=== PATIENT | female | born 2000 | race Caucasian/White ===

== ENCOUNTER 2022-11-06 18:23 | Outpatient (REF) | payer BC, SELFPAY ==
[2022-11-06 20:10] LABS: Free T4 Free Thyroxine* 0.96 ng/dL (0.70-1.85)
[2022-11-09 04:40] LABS: Total T3 120 ng/dL (80-200)
== END 2022-11-06 18:24 | disposition home or self-care (01) ==
LOC: NPINS 18:23
PROVIDERS: Visit Provider Registered Nurse
DX: E06.3 Autoimmune thyroiditis (principal)
CPT/HCPCS: 84439; 84443; 84480

== ENCOUNTER 2023-02-20 20:25 | Emergency (ER) | payer BC, SELFPAY ==
--- NOTE | 2023-02-20 20:57 | ED_ITS ---
HPI - General Adult General Date Seen: 02/20/23 Chief complaint: Urogenital Problems, Female Stated complaint: possible UTI Time Seen by Provider: 02/20/23 20:57 Source: patient Mode of arrival: ambulatory Limitations: no limitations History of Present Illness HPI narrative: Patient is a 22-year-old female presenting for concerns of a urinary tract infection. States for the past 3 days she is having burning and irritation whenever she urinates. States she has had increased frequency also. States she has he symptoms frequently with her UTIs but they usually go away within couple days. This 1 has persisted and cause 1 episode of vomiting earlier today. She still feels mildly nauseated. Has not taken anything for the nausea. She does states she has noticed her urine was cloudy and she started taking some eyln-eaz-zhnhirv medicine for the can not remember what it was called. States it was not Azo but urine is now orange. Denies fevers, chills, lightheadedness, weakness, numbness, headache, vision changes. Related Data Home Medications Medication Instructions Recorded Confirmed norgestimate 0.25 mg-ethinyl 1 tab PO DAILY 02/20/23 02/20/23 estradiol 35 mcg tablet ([place]-Linyah) Allergies Allergy/AdvReac Type Severity Reaction Status Date / Time No Known Drug Allergies Allergy Verified 02/20/23 21:12 Review of Systems Status of ROS: Reports: 6 or more systems reviewed and unremarkable except as noted in History and below Exam Narrative: Exam Narrative: Const: Well-nourished, Well-developed, in mild distress Eyes: PERRL, no conjunctival injection, and symmetrical lids HENT: Atraumatic external nose and ears. Moist mucous membranes. Neck: Symmetric, trachea midline, No thyromegaly GI: Nontender/Nondistended, No rebound or guarding. MSK:Extremities w/o deformity, Normal Active ROM Skin: Warm, Dry. No rashes or lesions. Neuro: Normal Muscle tone, No focal neurological deficits. Psych: Awake, Alert, & Oriented x3. Appropriate mood and affect. Const: Vital Signs, click to edit/add: Vital Signs - 24 hr 02/20/23 21:09 Temperature 97.9 F Pulse Rate [Right Pulse Oximeter] 81 Respiratory Rate 18 Blood Pressure [Ri ght Upper Arm] 122/83 Pulse Oximetry 99 Oxygen Delivery Me thod Room Air Course Vital Signs Vital signs: Initial Vital Signs Temperature 97.9 F 02/20/23 21:09 Temperature Source Temporal Artery Scan 02/20/23 21:09 Pulse Rate 81 02/20/23 21:09 Respiratory Rate 18 02/20/23 21:09 Blood Pressure 122/83 02/20/23 21:09 Blood Pressure Mean 96 02/20/23 21:09 Blood Pressure Position Sitting 02/20/23 21:09 Pulse Oximetry 99 02/20/23 21:09 Oxygen Delivery Method Room Air 02/20/23 21:09 Vital Signs Temperature 97.9 F 02/20/23 21:09 Pulse Rate 81 02/20/23 21:09 Respiratory Rate 18 02/20/23 21:09 Blood Pressure 122/83 02/20/23 21:09 Pulse Oximetry 99 02/20/23 21:09 Oxygen Delivery Method Room Air 02/20/23 21:09 Temperature 97.9 F 02/20/23 21:09 Pulse Rate 81 02/20/23 21:09 Respiratory Rate 18 02/20/23 21:09 Blood Pressure 122/83 02/20/23 21:09 Pulse Oximetry 99 02/20/23 21:09 Oxygen Delivery Method Room Air 02/20/23 21:09 Medications Administered Medications: Generic Name Dose Route Start Last Admin Trade Name Vidhya PRN Reason Stop Dose Admin Ondansetron HCl 4 mg 02/20/23 20:57 02/20/23 21:06 Ondansetron Odt 4 Mg Tab PO 02/20/23 20:58 4 mg ONCE ONE Administration Medical Decision Making MDM Narrative Medical decision making narrative: Patient is a 22-year-old female presenting to emergency department for concerns of a UTI. She has had symptoms like this in the past but they usually go away after few days. These symptoms that have lasted for over 3 days. Is having symptoms that sound likely UTI. She is having some nausea and Zofran was given. She is drinking water emergency department this time and I do not believe she needs fluids. Vital signs are completely normal and I do not believe other lab work is necessary at this time. Urinalysis is pending. The dipstick showed positive nitrates. With her symptoms says this is likely a sign of UTI we will start her on antibiotics. Keflex and Zofran prescribed through [facility]. She is feeling better after the Zofran. Lab Data Labs: Lab Results 02/20/23 Range/Units 21:00 Urine Color Yellow (Yellow) Urine Appearance Clear (Clear) Urine pH 7.5 (5.0-8.5) Ur Specific Clayton 1.015 (1.000-1.030) Urine Protein Trace A (Negative) Urine Glucose (UA) Trace A (Negative) Urine Ketones Negative (Negative) Urine Blood Trace-intact A (Negative) Urine Nitrite Positive A (Negative) Urine Bilirubin Negative (Negative) Urine Urobilinogen 1.0 (0.2-1.0) Ur Leukocyte Esterase Negative (Negative) Discharge Plan Discharge Clinical Impression: Urinary tract infection Qualifiers: Urinary tract infection type: acute cystitis Hematuria presence: without hematuria Qualified Code(s): N30.00 - Acute cystitis without hematuria Patient Disposition: Home, Self-Care Condition: Stable Instructions: Urinary Tract Infection in Women (DC) Additional Instructions: Take the antibiotics as prescribed. Return to the emergency department for new or worsening symptoms. Prescriptions: No Action norgestimate-ethinyl estradiol [[place]] 0.25-35 mg-mcg tablet 1 tab PO DAILY Follow Up/Referrals: Provider,Not a Local [Primary Care Provider] - Stand Alone Forms: [employer] Info Instructions
[2023-02-20] MEDS: ONDANSETRON ODT 4 MG TAB PO (21:06)
[2023-02-20 21:09] VITALS: BP 122/83; PULSE 81; RESP 18; TEMP 36.6; O2SAT 99; BMI 25.1
[2023-02-20 21:13] LABS: Appearance Urine Clear (Clear); Bilirubin Urine Negative (Negative); Blood Urine Trace-intact (Negative); Color Urine Yellow (Yellow); Glucose Urine Trace (Negative); Ketones Urine Negative (Negative); Leukocyte Esterase Urine Negative (Negative); Nitrite Urine Positive (Negative); Protein Urine Trace (Negative); Specific Gravity Urine 1.015 (1.000-1.030); pH Urine 7.5 (5.0-8.5)
[2023-02-20 21:35] LABS: Amorphous Sediment Urine Few; Bacteria Urine Few
[2023-02-20 21:58] VITALS: BP 118/74; PULSE 84; RESP 18; TEMP 36.9; O2SAT 99
[2023-02-20 21:59] VITALS: BP 118/74; PULSE 84; RESP 18; TEMP 36.9
== END 2023-02-20 21:59 | disposition home or self-care (01) ==
LOC: ED 21:29
PROVIDERS: Emergency Provider Student in an Organized Health Care Education/Training Program
DX: N39.0 Urinary tract infection, site not specified (principal)
CPT/HCPCS: 81001; 87086; 99282; 99283; A9270

== ENCOUNTER 2023-12-24 16:36 | Outpatient (REF) | payer BC, OTHER, SELFPAY ==
--- OUTSIDE RECORDS SUMMARY | 2023-12-24 16:39 | XMS_ITS | Referral Summary ---
Author Organization [facility] enter Care Team Providers Care Ostomy Nurse Name Role Phone Roberto Aldridge Unavailable [phone], Need To Check Unavailable Unavailabl e Rose Marie Mcintosh CNM Primary Care Provider Source Comments This disclosure is being made pursuant to the Care Everywhere program,applicable federal and state laws, and may not contain all informationavailable regarding this patient.[facility] and [facility] Encounters Date Type Department Care Team Description 10/24/2023 Telephone [facility] - [address] [address] Rose Marie Mcintosh CNM 10/19/[address] [address] Rose Marie Mcintosh CNM 10/19/2023 Travel 10/19/2023 8:10 AM CDT Lab Only [facility] - Laboratory [address] [place] [id number] Rose Marie Mcintosh CNM [facility], Lab 10/17/[address] [address] Rose Marie Mcintosh CNM from Last 3 Months Allergies Active Allergy Reactions Criticality Noted Date Comments Amoxicillin Trihydrate Unknown 02/18/2016 Amoxicillin-Pot Clavulanate Rash 12/23/19 09 Ciprofloxacin OTHER Low 08/26/2021 Penicillin Rash 03/05/2019 Penicillins Unknown 02/18/2016 Potassium Clavulanate Unknown 02/18/2016 Medications Medication Sig Dispensed Refills Start Date End Date Status acetaminophen 500 mg tablet Take 2 tablets (1,000 mg total) by mouth every 6 hours as needed. 0 Active ibuprofen 200 mg tablet Take 400 mg by mouth every 6 hours as needed. 0 Active drospirenone-ethinyl estradiol (CATHERINE) 3-0.03 mg tabletIndications:Bir th control counseling Take 1 tablet by mouth daily. 84 tablet 4 07/27/2023 Active meloxicam 7.5 mg tabletIndications:Deepika n in both knees, unspecified chronicity Take 1 tablet (7.5 mg total) by mouth daily. 30 tablet 1 07/27/2023 Active levothyroxine 25 mcg tabletIndications:Has himoto's thyroiditis Take 1 tablet (25 mcg total) by mouth every morning before breakfast. 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 Euthyroid. Recommend checking thyroid function test every 6-12 months. 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, not intractable 08/05/2019 Intermittent explosive disorder in pediatric pat ient 05/01/2019 Syncope 03/13/2019 Exertional dyspnea 03/13/2019 Dysuria 12/24/2017 Encounter for other general counseling and advice on contraception 11/10/2016 Irritable bowel syndrome with constipation 05/24 Allergic rhinitis 12/06/2015 Resolved Problems Problem Noted Date Diagnosed Date Resolved Date Sprain of ulnar collateral l igament of right elbow 05/12/2015 11/10/2016 History of meningitis 01/21/20152016 Immunizations Name Administration Dates Next Due COVID-19, mRNA 12+ yo (PFIZE R) 30mcg/0.3mL 02/16/2021,06/06/2020,05/12/2020 DTaP 10/02/2007, 4,09/25/2002,06/17,04/21/2002 DTaP, unspecified 10/02/2007, 4,09/25/2002,06/17,04/21/2002 HPV, 9 valent (Gardasil 9) 09/20/2017,,05/24/2016,07/27 Hepatitis A, pediatric 2-dose 05/24/2016, 016 Hepatitis A, unspecified 05/24/2016 Hepatitis B, pediatric/adole scent (ENGERIX or RECOMBIVAX) 01/29/2009,01/13/2008,11/22/2007 Hepatitis B, unspecified 01/29/2009,01/13/2008,1 Hib, HbOC (Hibtiter) 07/22/2003,06/17/2002,04/21 Hib, PRP-T 09/25/2002 Hib, unspecified 07/22/2003, 3,06/17/2002,04/21 Influenza 01/17/2016, 1,01/29/2009,02/26,01/23/2003 Influenza, MDCK quadrivalent 11/19/2019 Influenza, MDCK quadrivalent PF 11/21/2019 Influenza, PF 03/04/2013 Influenza, live attenuated nasal 12/15/2011,11/0 04/2009 Influenza, quadrivalent PF 11/16/2022,12/10/2017 ,12/08/2016 Influenza, quadrivalent nasal 12/12/2013 Influenza, unspecified 12/08/2020,02/26/2003,06/2002 MMR 10/02/2007,11/12/2003,11/11/2002 Meningococcal B, OMV adjuvan saritha (Bexsero) 07/27/2023,07/28/2015 Meningococcal Conjugate, MCV 4P (Menactra) 09/26/2018,07/28/2015,10/09/2014 Novel Influenza H1N1 12/10/2008 Novel Influenza H1N1, PF 01/07/2009 Polio, unspecified 10/02/2007, 3,06/17/2002,04/21 Polio/IPV 10/02/2007, 3,06/17/2002,04/21 Tdap 10/09/2014 Varicella 07/28/2015,11/22/2007 Social History Tobacco Use Types Packs/Day Years Used Date Smoking Tobacco: Never Smokeless Tobacco: Never Tobacco Cessation:Counseling Given: Not Answered Alcohol Use Standard Drinks/Week Comments Yes 3 (1 standard drink = 0.6 oz pur e alcohol) PHQ-2 Answer Date Recorded Total score/PHQ-2 0 07/27/2023 PHQ-9 Answer Date Recorded Total Score (PHQ-9 includes PHQ-2 questions/scor e) 2 07/27/2023 Sex and Gender Information Value Date Recorded Sex Assigned at Not on file Gender Identity Not on file Sexual Orientation Not on file Last Filed Vital Signs Vital Sign Reading Time Taken Comments Blood Pressure 100/68 07/27/2023 9:45 AM CDT Pulse 72 07/27/2023 9:45 AM CDT Temperature 36.3 ??C (97.3 ??F) 07/27/2023 9:45 AM CD T Respiratory Rate 14 09/07/2021 8:56 PM CDT Oxygen Saturation 97% 10/17/2021 5:12 PM CDT Inhaled Oxygen Concentration - - Weight 64.5 kg (142 lb 3.2 oz) 07/27/2023 9:45 A M CDT Height 160 cm (5' 2.99) 07/27/2023 9:45 AM CDT Body Mass Index 25.2 07/27/2023 9:45 AM CDT Plan of Treatment Not on file Procedures Procedure Name Priority Date/Time Associated Diagnosis Comments [facility] DIFFERENTIAL Routine 10/19/2023 7:5 4 AM CDT Screening for iron deficiency anemia [facility] T3, TOTAL Routine 10/19/2023 7:54 AM CDT Lubna's thyroiditis [facility] FERRITIN Routine 10/19/2023 7:54 AM CDT Screening for iron deficiency anemia [facility] CBC WITH DIFFERENTIAL Routine 10/19/2023 7:54 AM CDT Screening for iron deficiency anemia [facility] T4, FREE Routine 10/19/2023 7:54 AM CDT Luban's thyroiditis [facility] THYROID-STIMULATING HORMONE (TSH) Routine 10/19/2023 7:54 AM CDT Lubna's thyroiditis from Last 3 Months Results * [facility] FERRITIN (10/19/2023 7:54 AM CDT) Pathologist [facility] Ferritin - [facility] 42 20 - 200 ng/mL 10/19/2023 9:04 AM CDT [facility] Blood Venipuncture / Unknown 10/19/2023 7:54 AM CDT 10/19/2023 7:56 AM CDT Rose Marie Esteban [facility] Performing Organization Address City/[facility]/ZIP Co de Phone Number [address] [address], [place] [phone] * [facility] T3, TOTAL (10/19/2023 7:54 AM CDT) [facility] T3 (Triiodothyron ine), Total - Serum - [place] 149 80 - 200 ng/dL 10/20/2023 8:51 AM CDT [facility] Blood Venipuncture / Unknown 10/19/2023 7:54 AM CDT 10/19/2023 7:56 AM CDT Narrative [facility] - 10/20/2023 8:51 AM CDT Test Performed by: [facility] [address] [place] [id number] Can Capper: Neisha Jackman Ph.D.; CLIA# [id number] Rose Marie Esteban Aggie [facility] [address] [place] [address], [place] [phone] * (ABNORMAL) [facility] THYROID-STIMULATING HORMONE (TSH) (10/19/2023 7:54 AM CDT) TSH (Thyroid Stimulating Hormone) - [facility] 4.23(H) 0.30 - 4.20 uIU/mL 10/19/2023 9:11 AM CDT [facility] Comment: Caution: ??Patients taking multivitamins containing biotin within 12 hours of being drawn may have falsely decreased TSH results. Blood Venipuncture / Unknown 10/19/2023 7:54 AM CDT 10/19/2023 7:56 AM CDT Rose Marie Esteban [facility] [address] [place] [address], * (ABNORMAL) [facility] DIFFERENTIAL (10/19/2023 7:54 AM CDT) Pathologist [facility] WBC Count - Adjusted - [facility] 8.78 <=30.00 x10(9)/L 10/19/2023 8:21 AM [facility] Total Cells Counted - [facility] 100 10/19/2023 8:21 AM [facility] % Neutrophils - [facility] 35.0(L) 50.0 - 75.0 % 10/19/2023 8:21 AM [facility] % Lymphocytes - [facility] 56.0(H) 18.0 - 42.0 % 10/19/2023 8:21 AM [facility] % Monocytes - [facility] 3.0 2.0 - 11.0 % 10/19/2023 8:21 AM [facility] % Eosinophils - [facility] 6.0(H) 1.0 - 3.0 % 10/19/2023 8:21 AM [facility] % Basophils - [facility] 0.0 0.0 - 2.0 % 10/19/2023 8:21 AM [facility] # Neutrophils - [facility] 3.07 1.56 - 6.45 x10(9)/L 10/19/2023 8:21 AM CDT [facility] # Lymphocytes - [facility] 4.92(H) 0.95 - 3.07 x10(9)/L 10/19/2023 8:21 AM CDT [facility] # Monocytes - [facility] 0.26 0.26 - 0.81 x10(9)/L 10/19/2023 8:21 AM CDT [facility] # Eosinophils - [facility] 0.53(H) 0.03 - 0.48 x10(9)/L 10/19/2023 8:21 AM CDT [facility] # Basophils - [facility] 0.00(L) 0.01 - 0.08 x10(9)/L 10/19/2023 8:21 AM T [facility] RBC Morphology - [facility] Normal Normal 10/19/2023 8:21 AM T [facility] Platelet Estimate - [facility] Adequate Adequate 10/19/2023 8:21 AM T [facility] Blood Venipuncture / Unknown 10/19/2023 7:54 AM CDT 10/19/2023 7:56 AM CDT Rose Marie Esteban Aggie [facility] Performing Organization Address City/[facility] [[email or web address]] Co de Phone Number [facility] [address] [place] [address], * (ABNORMAL) [facility] T4, FREE (10/19/2023 7:54 AM CDT) Pathologist [facility] T4 (Thyroxine), Free - [facility] 0.83(L) 0.90 - 1.70 ng/dL 10/19/2023 9:10 AM CDT [facility] Comment: Caution: ??Patients taking multivitamins containing biotin within 12 hours of being drawn may have falsely increased free T4 results. Blood Venipuncture / Unknown 10/19/2023 7:54 AM CDT 10/19/2023 7:56 AM CDT Rose Marie Esteban CNM [facility] [address] [place] [address], [place] [phone] * (ABNORMAL) [facility] CBC WITH DIFFERENTIAL (10/19/2023 7:54 AM CDT) WBC Count - [facility] 8.78 3.44 - 9.56 x10(9)/L 10/19/2023 8:21 AM CDT [facility] RBC Count - [facility] 4.73 3.92 - 5.13 x10(12)/L 10/19/2023 8:21 AM CDT [facility] Hemoglobin - [facility] 13.7 11.6 - 15.0 g/dL 10/19/2023 8:21 AM T [facility] Hematocrit - [facility] 40.7 35.5 - 44.9 % 10/19/2023 8:21 AM T [facility] MCV (Mean Corpuscular Volume) - [facility] 86.0 78.2 - 97.9 fl 10/19/2023 8:21 AM T [facility] Platelet Count - [facility] 323 157 - 371 x10(9)/L 10/19/2023 8:21 AM T [facility] RDW (RBC Distribution Width)-CV - [facility] 11.7(L) 12.2 - 16.1 % 10/19/2023 8:21 AM T [facility] Blood Venipuncture / Unknown 10/19/2023 7:54 AM CDT 10/19/2023 7:56 AM CDT Rose Marie Esteban CNM [facility] [address] [place] [address], [place] [phone] from Last 3 Months Care Teams Ostomy Nurse Relationship Specialty Start Date End Date [id number], Need To Check ` PCP - Primary Care Physician 02/04/07 Rose Marie Mcintosh CN [address] [place] [id number] PCP - General Nurse Practitioner 01/16/22 Roberto Aldridge [address] [place] [id number] Family Practice 03/03/19
--- OUTSIDE RECORDS SUMMARY | 2023-12-24 16:39 | XMS_ITS | Clinical Summary ---
Author Organization [facility] enter Care Team Providers Care Transitions Rn Care Coordinator Name Role Phone Roberto Aldridge Unavailable [phone], Need To Check Unavailable Unavailabl e Rose Marie Mcintosh [facility] Primary Care Provider Source Comments This disclosure is being made pursuant to the Care Everywhere program,applicable federal and state laws, and may not contain all informationavailable regarding this patient.[facility] Allergies Active Allergy Reactions Criticality Noted Date [...] elbow 05/12/2015 11/10/2016 History of meningitis 01/21/20152016 Encounters Date Type Department Care Team Description 10/24/[address] [phone] Rose Marie Mcintosh CNM 10/19/2023 8:10 AM CDT Lab Only [facility] - Laboratory [address] [place] [id number] Rose Marie Mcintosh CNM [facility], Lab 10/19/[address] [address] Rose Marie Mcintosh CNM 10/19/2023 Travel 10/17/[address] [address] Rose Marie Mcintosh CNM from Last 3 Months Immunizations Name Administration Dates Next Due COVID-19, [...] Polio/IPV 10/02/2007, 3,06/17/2002,04/21 Tdap 10/09/2014 Varicella 07/28/2015,11/22/2007 Family History Medical History Relation Comments Thyroid Disease Maternal Grandfather Thyroid Disease Maternal Grandmother Hypothyroidism Mother Thyroid Disease Mother Allergic Rhinitis Other Arrhythmia Other Congenital malformation Other Diabetes Other Fainting Other GERD Other Hearing Loss Other High Cholesterol Other Hypertension Other Hypothyroidism Other Irritable Bowel Syndrome Other Migraines Other Sinusitis Other Cancer Paternal Grandmother Breast and Brain Relation Status Comments Father Alive Maternal Grandfather Maternal Grandmother Mother Alive Other Paternal Grandmother Social History Tobacco Use Types Packs/Day Years [...] 07/27/2023 9:45 AM CDT Plan of Treatment Health Maintenance Due Date Last Done Comments HIV [place] Screening 2016 HCV Screening 12/14/2019 Chlamydia Screening 12/11/2020 12/12/2019, 8 Gonorrhea Screening 12/11/2020 12/12/2019, 8 Cervical Cancer Screening 2022 Lipid Disorder Screening 2022 [id number]-2 Vaccine ( season) 2023 02/16/2021, 06/06/2020, 05/12/2020 Influenza Vaccine: Seasonal (#1) 10/21/2023 11/16/2022, 12/08/2020, 11/21/2019, Additional history exists Annual Physical Visit 07/26/2024 07/27/2023 , 07/27/2023, 10/28/2021, Additional history exists Tetanus Diphtheria Pertussis (7 - Td or Tdap) 10/09/2024 10/09/2014, 10/02/2007, 10/02/2007, Additional history exists Hepatitis B Vaccine Completed 01/29/2009, 01/29/2009, 01/13/2008, Additional history exists Varicella Vaccine Completed 07/28/2015, 11/22/2007 HPV Vaccine Completed 09/20/2017, 09/19, 05/24/2016, Additional history exists MenACWY Meningococcal Vaccine Discontinued , 07/28/2015, 10/09/2014 MenB Meningococcal Vaccine Completed 07/27/2023, Procedures Procedure Name Priority Date/Time Associated Diagnosis Comments [facility] DIFFERENTIAL Routine 10/19/2023 7:5 4 AM CDT Screening for iron deficiency anemia [facility] T3, TOTAL Routine 10/19/2023 7:54 AM CDT [place] thyroiditis [facility] FERRITIN Routine 10/19/2023 7:54 AM CDT Screening for iron deficiency anemia [facility] CBC WITH DIFFERENTIAL Routine 10/19/2023 7:54 AM CDT Screening for iron deficiency anemia [facility] T4, FREE Routine 10/19/2023 7:54 AM CDT [place] thyroiditis [facility] THYROID-STIMULATING HORMONE (TSH) Routine 10/19/2023 7:54 AM CDT [place] thyroiditis from Last 3 Months Results * [facility] FERRITIN (10/19/2023 7:54 AM CDT) Pathologist [facility] Ferritin - [facility] 42 20 - 200 ng/mL 10/19/2023 9:04 AM CDT [facility] Blood Venipuncture / Unknown 10/19/2023 7:54 AM CDT 10/19/2023 7:56 AM CDT [facility] [address] [place] [address], [place] [phone] * [facility] T3, TOTAL (10/19/2023 7:54 AM CDT) Pathologist [facility] T3 (Triiodothyron ine), Total - Serum [facility] 149 80 - 200 ng/dL 10/20/2023 8:51 AM CDT [facility] Blood Venipuncture / Unknown 10/19/2023 7:54 AM CDT 10/19/2023 7:56 AM CDT Narrative [facility] - 10/20/2023 8:51 AM CDT Test Performed by: [facility] [address] [place] [address] Flavoring Oil Filterer: Neisha Jackman Ph.D.; CLIA# [id number] Rose Marie Esteban [facility] [address] [place] [address], [place] [phone] * (ABNORMAL) [facility] THYROID-STIMULATING HORMONE (TSH) (10/19/2023 7:54 AM CDT) [facility] TSH (Thyroid Stimulating Hormone) - [facility] 4.23(H) 0.30 - 4.20 uIU/mL 10/19/2023 9:11 AM CDT [facility] Comment: Caution: ??Patients taking multivitamins containing biotin within 12 hours of being drawn may have falsely decreased TSH results. Blood Venipuncture / Unknown 10/19/2023 7:54 AM CDT 10/19/2023 7:56 AM CDT Rose Marie Maci Esteban CNM [facility] LAB [facility] [address] [place] [address], * (ABNORMAL) [facility] DIFFERENTIAL (10/19/2023 7:54 AM CDT) WBC Count - Adjusted - [facility] 8.78 <=30.00 x10(9)/L 10/19/2023 8:21 AM [facility] Total Cells Counted - [facility] 100 10/19/2023 8:21 AM [facility] % Neutrophils - [facility] 35.0(L) 50.0 - 75.0 % 10/19/2023 8:21 AM [facility] % Lymphocytes - [facility] 56.0(H) 18.0 - 42.0 % 10/19/2023 8:21 AM [facility] % Monocytes - [facility] 3.0 2.0 - 11.0 % 10/19/2023 8:21 AM [facility] % Eosinophils - [facility] 6.0(H) 1.0 - 3.0 % 10/19/2023 8:21 AM [facility] % Basophils - [facility] 0.0 0.0 - 2.0 % 10/19/2023 8:21 AM [facility] # Neutrophils - [facility] 3.07 1.56 - 6.45 x10(9)/L 10/19/2023 8:21 AM [facility] # Lymphocytes - [facility] 4.92(H) 0.95 - 3.07 x10(9)/L 10/19/2023 8:21 AM [facility] # Monocytes - [facility] 0.26 0.26 - 0.81 x10(9)/L 10/19/2023 8:21 AM CDT [facility] # Eosinophils - [facility] 0.53(H) 0.03 - 0.48 x10(9)/L 10/19/2023 8:21 AM CDT [facility] # Basophils - [facility] 0.00(L) 0.01 - 0.08 x10(9)/L 10/19/2023 8:21 AM CDT [facility] RBC Morphology - [facility] Normal Normal 10/19/2023 8:21 AM CDT [facility] Platelet Estimate - [facility] Adequate Adequate 10/19/2023 8:21 AM CDT [facility] Blood Venipuncture / Unknown 10/19/2023 7:54 AM CDT 10/19/2023 7:56 AM CDT Rose Marie Esteban [facility] LAB Performing Organization Address [facility] [place] [address], * (ABNORMAL) [facility] T4, FREE (10/19/2023 7:54 AM CDT) Pathologist [facility] T4 (Thyroxine), Free - [facility] 0.83(L) 0.90 - 1.70 ng/dL 10/19/2023 9:10 AM CDT [facility] Comment: Caution: ??Patients taking multivitamins containing biotin within 12 hours of being drawn may have falsely increased free T4 results. Blood Venipuncture / Unknown 10/19/2023 7:54 AM CDT 10/19/2023 7:56 AM CDT Rose Marie Esteban [facility] Performing Organization Address [facility]/[place] [address], [place] [phone] * (ABNORMAL) [facility] CBC WITH DIFFERENTIAL (10/19/2023 7:54 AM CDT) Pathologist [facility] WBC Count - [facility] 8.78 3.44 - 9.56 x10(9)/L 10/19/2023 8:21 AM CDT [facility] RBC Count - [facility] 4.73 3.92 - 5.13 x10(12)/L 10/19/2023 8:21 AM T [facility] Hemoglobin - [facility] 13.7 11.6 - 15.0 g/dL 10/19/2023 8:21 AM [facility] Hematocrit - [facility] 40.7 35.5 - 44.9 % 10/19/2023 8:21 AM T [facility] MCV (Mean Corpuscular Volume) - [facility] 86.0 78.2 - 97.9 fl 10/19/2023 8:21 AM [facility] Platelet Count - C 323 157 - 371 x10(9)/L 10/19/2023 8:21 AM [facility] RDW (RBC Distribution Width)-CV - [facility] 11.7(L) 12.2 - 16.1 % 10/19/2023 8:21 AM [facility] Blood Venipuncture / Unknown 10/19/2023 7:54 AM CDT 10/19/2023 7:56 AM CDT Rose Marie Esteban CNM [facility] Performing Organization Address City/State/[facility] Co de Phone Number [facility] [address] [place] [address], from Last 3 Months Care Teams Transitions Rn Care Coordinator Relationship Specialty Start Date End Date [id number], Need To Check ` PCP - Primary Care Physician 02/04/07 Rose Marie Mcintosh CNM [address] [place] [id number] PCP - General Nurse Practitioner 01/16/22 Roberto Aldridge [address] [place] [address] Family Practice 03/03/19
--- OUTSIDE RECORDS SUMMARY | 2023-12-24 16:39 | XMS_ITS | Clinical Summary ---
Author Organization [employer] [facility] [employer] Address [place], [place] [address] Care Team Providers Care Vinyl Cutter Name Role Phone Pcp, No Primary Care Provider Unavailabl e Allergies Active Allergy Reactions Criticality Noted Date Comments Penicillins Rash,*Unknown - Childhood Rxn 12/22 Potassium Clavulanate *Unknown 02/18/2016 Medications Medication Sig Dispensed Refills Start Date End Date Status [place] 0.25-35 mg-mcg tablet Take 1 Tablet by mouth once daily. Active Active Problems No known active problems Immunizations Name Administration Dates Next Due COVID-19 vaccine (Colored Solar NTech 30mcg/0.3mL) PF, MDV 02/16/2021 DTaP 10/02/2007, 4,09/25/2002,06/17,04/21/2002 Dtap Unspecified Formulation 10/02/2007, 07/22/2003,09/25/2002,06/17,04/21/2002 HIB HbOC (HibTITER) 07/22/2003,06/17/2002,2002 HIB PRP-T (ActHIB,Hiberix) 09/25/2002 HPV 9 (Gardasil 9) 09/20/2017, 7,05/24/2016,07/27 Hepatitis A (Peds) 05/24/2016,07/28/2015 Hepatitis A (Peds),Unspecified 05/24/2016,2015 Hepatitis A, Unspecified 05/24/2016 Hepatitis B (Peds) 01/29/2009,01/13/2008, 008 Hepatitis B, Unspecified 01/29/2009,01/13/2008,1 Hib Conjugate, Unspecified 07/22/2003,,06/17/2002,04/21 Inactivated Polio Vaccine 10/02/2007,08/2002,06/17/2002,04/21 Influenza A (H1N1), Inactiva saritha (Age 6-35 Mos) 01/07/2009 Influenza A (H1N1), Inactiva saritha (Age >=3 Years) 12/10/2008 Influenza Virus, Unspecified 12/08/2020,02/26/19 04,01/23/2003 Influenza, IIV4 11/16/2022 Influenza, Injectable, Mdck, Quadrivalent, W/preservative 11/19/2019 Influenza,LAIV3 Live Intrana dax (Flumist) 12/15/2011,12/22/2009 MMR 10/02/2007,11/12/2003,11/11/2002 Meningococcal B 07/28/2015 Meningococcal Vaccine (Menactra) 09/26/2018,09/2015,10/09/2014 Polio Virus, Unspecified 10/02/2007,08/2002,06/17/2002,04/21 Tdap 10/09/2014 Varicella Vaccine 07/28/2015,11/22/2007 Family History Relation Name Status Comments Mother Alive Social History Tobacco Use Types Packs/Day Years Used Date Smoking Tobacco: Never Smokeless Tobacco: Never Tobacco Cessation:Counseling Given: Yes Alcohol Use Standard Drinks/Week Comments Not Currently 0 (1 standard drink = 0.6 oz pur e alcohol) rare drink or two PHQ-2 Answer Date Recorded PHQ-2 TOTAL SCORE 2 11/16/2022 Social Connections Answer Date Recorded Frequency of Communication with Friends and Fami ly Not on file 02/19/2021 Financial Resource Strain Answer Date R ecorded Difficulty of Paying Living Expenses Not on file 02/19/2021 Difficulty of Paying Living Expenses Not on file 02/19/2021 Sex and Gender Information Value Date Recorded Sex Assigned at Not on file Gender Identity Not on file Sexual Orientation Not on file Obstetrics History Last Filed Vital Signs Vital Sign Reading Time Taken Comments Blood Pressure 108/69 11/16/2022 3:20 PM CDT Pulse 77 11/16/2022 3:20 PM CDT Temperature 36.8 ??C (98.3 ??F) 12/23/2020 3:59 PM CD T Respiratory Rate - - Oxygen Saturation 97% 11/16/2022 3:20 PM CDT Inhaled Oxygen Concentration - - Weight 65.9 kg (145 lb 3.2 oz) 11/16/2022 3:20 P M CDT Height 157.5 cm (5' 2.01) 11/16/2022 3:20 PM CD T Body Mass Index 26.55 11/16/2022 3:20 PM CDT Plan of Treatment Health Maintenance Due Date Last Done Comments HIV for age 15-65 2016 Chlamydia for age 16-24 2017 Hepatitis C screening for age 18-79 12/14/2019 Pap test for age 21-65 2022 COVID-19 vaccine series ( season) 2023 05/23/2023, 12/12/2021, 02/16/2021, Additional history exists Influenza for age 9-49 10/21/2023 , 12/08/2020, 11/19/2019, Additional history exists BMI (ht and wt on same day) for age 18+ 11/17/2023 11/16/2022, 12/23/2020, 12/08/2020 Depression screening for age 12+ 11/17/2023 11/16/2022 Tetanus booster 10/09/2024 10/09/2014 Tdap Completed 10/09/2014 HPV series for age 9-26 Completed 09/21/19 18, 10/06/2016, 05/24/2016, Additional history exists Pneumococcal series for age 6-64 Aged Out No longer eligible based on patient's age to complete this topic Care Teams Vinyl Cutter Relationship Specialty Start Date End Date Pcp, No . PCP - General 12/08/20
--- OUTSIDE RECORDS SUMMARY | 2023-12-24 16:39 | XMS_ITS | Encounter Summary ---
Author Organization [facility] enter Address [address] [place] [phone] Phone Care Team Providers Care Instrument Tech Name Role Phone Roberto Aldridge Unavailable [phone], Need To Check Unavailable Unavailabl e Rose Marie Mcintosh [facility] Primary Care Provider Reason for Visit * Reason Comments Test Results Encounter Details Date Type Department Care Team (Late st Contact Info) Description 10/24/2023 Telephone [facility] - Family Practice [address] [place] [address] [phone] Rose Marie Mcintosh, [address] [id number] Social History Tobacco Use Types Packs/Day Years Used Date Smoking Tobacco: Never Smokeless Tobacco: Never Alcohol Use Standard Drinks/Week Comments Yes 3 (1 standard drink = 0.6 oz pur e alcohol) PHQ-2 Answer Date Recorded Total score/PHQ-2 0 07/27/2023 PHQ-9 Answer Date Recorded Total Score (PHQ-9 includes PHQ-2 questions/scor e) 2 07/27/2023 Sex and Gender Information Value Date Recorded Sex Assigned at Not on file Gender Identity Not on file Sexual Orientation Not on file documented as of this encounter Miscellaneous Notes * Telephone Encounter - Eliza Bonilla RN - 10/24/2023 11:06 AM CDT I called Roslyn and notified her of results and recommendations. She verbalized understanding. JUDITH Levine ----- Message from Rose Marie Esteban CNM sent at 10/24/2023 11:00 AM CDT ----- I have reviewed these results. Please let Roslyn know that the T3 result is normal. This does not change the plan to start a low dose of synthroid at this time. Thank you. documented in this encounter Plan of Treatment Not on file documented as of this encounter Visit Diagnoses Not on filedocumented in this encounter Additional Health Concerns Assessment Noted Time PHQ-9 Depression Total Score: 2 07/27/19 24 1:05 PM CDT A fall risk assessment has been complete d for the patient 10/18/2021 1:23 PM CDT PHQ-2 Depression Total Score: 0 07/27/19 24 1:05 PM CDT documented as of this encounter Care Teams Instrument Tech Relationship Specialty Start Date End Date [id number], Need To Check ` PCP - Primary Care Physician 02/04/07 Rose Marie Mcintosh CNM [address] [place] [id number] PCP - General Nurse Practitioner 01/16/22 Roberto Aldridge [address] [place] [address] Family Practice 03/03/19 documented as of this encounter
--- OUTSIDE RECORDS SUMMARY | 2023-12-24 16:39 | XMS_ITS | Encounter Summary ---
Author Organization [facility] Care Team Providers Care Mold Cutting Machine Operator Name Role Phone Roberto Aldridge Unavailable [phone], Need To Check Unavailable Unavailabl e Rose Marie Mcintosh [facility] Primary Care Provider Encounter Details Date Type Department Care Team (Latest Contact Info) Description 10/19/2023 Travel Social History Tobacco Use Types Packs/Day Years [...] on file documented as of this encounter Plan of Treatment Not on [...] documented as of this encounter Care Teams Mold Cutting Machine Operator Relationship Specialty Start Date End Date [phone], Need To Check ` PCP - Primary Care Physician 02/04/07 Rsoe Marie Mcintosh CNM [address] [place] [address] PCP - General Nurse Practitioner 01/16/22 Roberto Aldridge [address] [place] [address] Family Practice 03/03/19 documented as of this encounter
--- OUTSIDE RECORDS SUMMARY | 2023-12-24 16:39 | XMS_ITS | Encounter Summary ---
Author Organization [facility] enter Address [address] [place] [address] Phone Care Team Providers Care Boom Storage Name Role Phone Roberto Aldridge Unavailable [phone], Need To Check Unavailable Unavailabl e Rose Marie Mcintosh [facility] Primary Care Provider Encounter Details Date Type Department Care Team (Late st Contact Info) Description 10/19/2023 8:10 AM CDT Lab Only [facility] - Laboratory [address] [place] [address] Rose Marie Mcintosh, [facility] [place] [address] c, Lab Social History Tobacco Use Types Packs/Day Years [...] as of this encounter Plan of Treatment Scheduled Orders Name Type Priority Associated Diagnoses Orde r Schedule [facility] THYROID-STIMULATING HORMONE (TSH) [facility] Lab Routine Lubna's thyroiditis Expected: 01/16/2024, Expires: 01/18/2025 documented as of this encounter Procedures Procedure Name Priority Date/Time Associated Diagnosis Comments [facility] FERRITIN Routine 10/19/2023 7:54 AM CDT Screening for iron deficiency anemia [facility] T3, TOTAL Routine 10/19/2023 7:54 AM CDT Lubna's thyroiditis [facility] THYROID-STIMULATING HORMONE (TSH) Routine 10/19/2023 7:54 AM CDT Lubna's thyroiditis [facility] DIFFERENTIAL Routine 10/19/2023 7:5 4 AM CDT Screening for iron deficiency anemia [facility] T4, FREE Routine 10/19/2023 7:54 AM CDT Lubna's thyroiditis [facility] CBC WITH DIFFERENTIAL Routine 10/19/2023 7:54 AM CDT Screening for iron deficiency anemia documented in this encounter Results * (ABNORMAL) [facility] DIFFERENTIAL (10/19/2023 7:54 AM CDT) WBC Count - Adjusted - [facility] 8.78 <=30.00 x10(9)/L 10/19/2023 8:21 AM [facility] Total Cells Counted - [facility] 100 10/19/2023 8:21 AM [facility] % Neutrophils - [facility] 35.0(L) 50.0 - 75.0 % 10/19/2023 8:21 AM [facility] % Lymphocytes - [facility] 56.0(H) 18.0 - 42.0 % 10/19/2023 8:21 AM [facility] % Monocytes - [facility] 3.0 2.0 - 11.0 % 10/19/2023 8:21 AM [facility] % Eosinophils - [facility] 6.0(H) 1.0 - 3.0 % 10/19/2023 8:21 AM [facility] % Basophils - [facility] 0.0 0.0 - 2.0 % 10/19/2023 8:21 AM [facility] # Neutrophils - [facility] 3.07 1.56 - 6.45 x10(9)/L 10/19/2023 8:21 AM [facility] # Lymphocytes - [facility] 4.92(H) 0.95 - 3.07 x10(9)/L 10/19/2023 8:21 AM [facility] # Monocytes - [facility] 0.26 0.26 - 0.81 x10(9)/L 10/19/2023 8:21 AM [facility] # Eosinophils - [facility] 0.53(H) 0.03 - 0.48 x10(9)/L 10/19/2023 8:21 AM [facility] # Basophils - [facility] 0.00(L) 0.01 - 0.08 x10(9)/L 10/19/2023 8:21 AM [facility] RBC Morphology - [facility] Normal Normal 10/19/2023 8:21 AM [facility] Platelet Estimate - [facility] Adequate Adequate 10/19/2023 8:21 AM [facility] Blood Venipuncture / Unknown 10/19/2023 7:54 AM CDT 10/19/2023 7:56 AM CDT Rose Marie Esteban CNM [facility] LAB [facility] [address] [place] [address], * [facility] T3, TOTAL (10/19/2023 7:54 AM CDT) Pathologist [facility] T3 (Triiodothyron ine), Total - Serum - [place] 149 80 - 200 ng/dL 10/20/2023 8:51 AM CDT [facility] Blood Venipuncture / Unknown 10/19/2023 7:54 AM CDT 10/19/2023 7:56 AM CDT Narrative [facility] - 10/20/2023 8:51 AM CDT Test Performed by: [facility] [address] [place] [address] Sailing Master: Neisha Jackman Ph.D.; CLIA# [id number] Rose Marie [facility] [address] [place] [address], [place] [phone] * [facility] FERRITIN (10/19/2023 7:54 AM CDT) [facility] Ferritin - [facility] 42 20 - 200 ng/mL 10/19/2023 9:04 AM CDT [facility] Blood Venipuncture / Unknown 10/19/2023 7:54 AM CDT 10/19/2023 7:56 AM CDT Rose Marie Esteban CNM [facility] LAB [address] [address], [place] [phone] * (ABNORMAL) [facility] CBC WITH DIFFERENTIAL (10/19/2023 7:54 AM CDT) [facility] WBC Count - [facility] 8.78 3.44 - 9.56 x10(9)/L 10/19/2023 8:21 AM CDT [facility] RBC Count - [facility] 4.73 3.92 - 5.13 x10(12)/L 10/19/2023 8:21 AM CDT [facility] Hemoglobin - [facility] 13.7 11.6 - 15.0 g/dL 10/19/2023 8:21 AM CDT [facility] Hematocrit - [facility] 40.7 35.5 - 44.9 % 10/19/2023 8:21 AM CDT [facility] MCV (Mean Corpuscular Volume) - [facility] 86.0 78.2 - 97.9 fl 10/19/2023 8:21 AM CDT [facility] Platelet Count - [facility] 323 157 - 371 x10(9)/L 10/19/2023 8:21 AM CDT [facility] RDW (RBC Distribution Width)-CV - [facility] 11.7(L) 12.2 - 16.1 % 10/19/2023 8:21 AM CDT [facility] Blood Venipuncture / Unknown 10/19/2023 7:54 AM CDT 10/19/2023 7:56 AM CDT Rose Marie Esteban [facility] Performing Organization Address [facility]/[place] [address], * (ABNORMAL) [facility] T4, FREE (10/19/2023 7:54 AM CDT) T4 (Thyroxine), Free - [facility] 0.83(L) 0.90 - 1.70 ng/dL 10/19/2023 9:10 AM CDT [facility] Comment: Caution: ??Patients taking multivitamins containing biotin within 12 hours of being drawn may have falsely increased free T4 results. Blood Venipuncture / Unknown 10/19/2023 7:54 AM CDT 10/19/2023 7:56 AM CDT Rose Marie Esteban Aggie [facility] [place] [address], [place] [phone] * (ABNORMAL) [facility] THYROID-STIMULATING HORMONE (TSH) (10/19/2023 7:54 AM CDT) TSH (Thyroid Stimulating Hormone) - [facility] 4.23(H) 0.30 - 4.20 uIU/mL 10/19/2023 9:11 AM CDT [facility] Comment: Caution: ??Patients taking multivitamins containing biotin within 12 hours of being drawn may have falsely decreased TSH results. Blood Venipuncture / Unknown 10/19/2023 7:54 AM CDT 10/19/2023 7:56 AM CDT Rose Marie Esteban CNM [facility] LAB [facility] [address] [place] [address], documented in this encounter Visit Diagnoses Diagnosis Lubna's thyroiditis Chronic lymphocytic thyroiditis Screening for iron deficiency anemia documented in this encounter Additional Health Concerns Assessment Noted Time PHQ-9 Depression Total Score: 2 07/27/19 24 1:05 PM CDT A fall risk assessment has been complete d for the patient 10/18/2021 1:23 PM CDT PHQ-2 Depression Total Score: 0 07/27/19 24 1:05 PM CDT documented as of this encounter Care Teams Boom Storage Relationship Specialty Start Date End Date [phone], Need To Check ` PCP - Primary Care Physician 02/04/07 Rose Marie Mcintosh CNM [address] [place] [address] PCP - General Nurse Practitioner 01/16/22 Roberto Aldridge [address] [place] [address] Family Practice 03/03/19 documented as of this encounter
--- OUTSIDE RECORDS SUMMARY | 2023-12-24 16:39 | XMS_ITS | Encounter Summary ---
Author Organization [facility] enter Address [address] [place] [address] Phone Care Team Providers Care Plastic Parts Designer Name Role Phone Roberto Aldridge Unavailable [phone], Need To Check Unavailable Unavailabl e Rose Marie Mcintosh [facility] Primary Care Provider Reason for Visit * Reason Comments Test Results Encounter Details Date Type Department Care Team ([facility] st Contact Info) Description 10/19/2023 Telephone [facility] - Family Practice [address] [place] [address] Rose Marie Mcintosh, [address] [phone] Social History Tobacco Use Types Packs/Day Years [...] Telephone Encounter - Eliza Bonilla RN - 10/19/2023 3:02 PM CDT ----- Message from Rose Marie Esteban CNM sent at 10/19/2023 2:58 PM CDT ----- I have reviewed these results. I talked to Roslyn about this result. The last time she had her thyroid tested was about a year ago. She has been told in the past that she had a marker for Lubna's thyroiditis. In August 2020 TPO antibodies were elevated. This is the first time her TSH has actually been high and it is barely high at 4.23. Free T4 is slightly low 0.83. Therefore I would recommend starting Synthroid at a very low dose. I will call in levothyroxine or Synthroid 25 mcg to be taken every morning an hour before eating. Follow-up TSH to be ordered in 8 to 12 weeks. T3 is still pendingand we will call her with that result. We also reviewed hemoglobin and ferritin levels which are normal at this time. Iron supplement could be taken but could also cause constipation. If she decides to do a lot of vigorous exercise training for ski race again next February she should consider an iron supplement. She verbalized understanding and is in agreement with this plan of care. documented in this encounter Plan of Treatment [...] documented as of this encounter Care Teams Plastic Parts Designer Relationship Specialty Start Date End Date [id number], Need To Check ` PCP - Primary Care Physician 02/04/07 Rose Marie Mcintosh CNM [address] [place] [address] PCP - General Nurse Practitioner 01/16/22 Roberto Aldridge [address] [place] [address] Family Practice 03/03/19 documented as of this encounter
--- OUTSIDE RECORDS SUMMARY | 2023-12-24 16:40 | XMS_ITS | Encounter Summary ---
Author Organization [facility] enter Address [address] [place] [address] Phone Care Team Providers Care Warehouse Delivery Manager Name Role Phone Roberto Aldridge Unavailable [phone], Need To Check Unavailable UnavailKiersten Sawyer Primary Care Provider [phone] Rose Marie Mcintosh [facility] Primary Care Provider Reason for Visit * Reason Comments Medication Refill Encounter Details Date Type Department Care Team (Late st Contact Info) Description 05/18/2020 Refill [facility] - Urology [address] [place] [phone] Keiko Tobar PASubhaC [address] [place] [address] Social History Tobacco Use Types Packs/Day Years Used Date Smoking Tobacco: Never Smokeless Tobacco: Never Alcohol Use Standard Drinks/Week Comments Never 0 (1 standard drink = 0.6 oz pur e alcohol) Sex and Gender Information Value Date Recorded Sex Assigned at Not on file Gender Identity Not on file Sexual Orientation Not on file documented as of this encounter Plan of Treatment Not on file documented as of this encounter Visit Diagnoses Diagnosis Recurrent UTI Urinary tract infection, site not specified documented in this encounter Additional Health Concerns Assessment Noted Time PHQ-9 Depression Total Score: 020 2:09 PM CDT PHQ-2 Depression Total Score: 3 04/30/19 20 2:09 PM CDT documented as of this encounter Care Teams Warehouse Delivery Manager Relationship Specialty Start Date End Date [id number], Need To Check ` PCP - Primary Care Physician 02/04/07 Kiersten Gomez [address] [place] [address] PCP - General 04/30/19 01/15/22 Rose Marie Mcintosh CNM [address] [place] [address] PCP - General Nurse Practitioner 01/16/22 Roberto Aldridge [address] [place] [address] Family Practice 03/03/19 documented as of this encounter
--- OUTSIDE RECORDS SUMMARY | 2023-12-24 16:40 | XMS_ITS | Encounter Summary ---
Author Organization [facility] enter Address [address] [place] [address] Phone Care Team Providers Care Supervisor Cell Operation Name Role Phone Roberto Aldridge Unavailable [phone], Need To Check Unavailable UnavailKiersten Sawyer Primary Care Provider [phone] Rose Marie Mcintosh [facility] Primary Care Provider Encounter Details Date Type Department Care Team (Late st Contact Info) Description 10/18/2021 Telephone [facility] - Pod[facility]ry [facility] [address] [place], [place] [phone] Kevan Bush, DPAggie [address] [place] [address] Social History Tobacco Use Types Packs/Day Years [...] Miscellaneous Notes * Telephone Encounter - Eliza Ho RN - 10/18/2021 8:41 AM CDT Spoke with patient who states she would prefer to see dr bush today if possible, but will see whomever can get her in today. Appt scheduled for ER fu this afternoon * Telephone Encounter - Lucila Boudreaux - 10/18/2021 7:21 AM CDT Patient was in ER last night with toe injury. X-rays taken; toe was not able to be set. She was told to see Dr. Bush today. Please advise on scheduling. documented in this encounter Plan of Treatment Not on file documented as of this encounter Visit Diagnoses Not on filedocumented in this encounter Additional Health Concerns Assessment Noted Time PHQ-9 Depression Total Score: 11 020 2:09 PM CDT A fall risk assessment has been complete d for the patient 10/18/2021 1:23 PM CDT PHQ-2 Depression Total Score: 3 04/30/19 20 2:09 PM CDT documented as of this encounter Care Teams Supervisor Cell Operation Relationship Specialty Start Date End Date [id number], Need To Check ` PCP - Primary Care Physician 02/04/07 Kiersten Gomez [address] [place] [address] PCP - General 04/30/19 01/15/22 Rose Marie Mcintosh CNM [address] [place] [address] PCP - General Nurse Practitioner 01/16/22 Roberto Aldridge [address] [place] [address] Family Practice 03/03/19 documented as of this encounter
--- OUTSIDE RECORDS SUMMARY | 2023-12-24 16:40 | XMS_ITS | Encounter Summary ---
Author Organization [facility] enter Address [address] [place] [address] Phone Care Team Providers Care Silk Screen Painter Name Role Phone Roberto Aldridge Primary Care Provider [phone], Need To Check Primary Care Provider Unav ailable Roberto Aldridge Primary Care Provider Roberto Aldridge Unavailable [phone], Need To Check Unavailable UnavailKiersten Sawyer Primary Care Provider [phone] Rose Marie Mcintosh [facility] Primary Care Provider Reason for Visit * Reason Comments Medication Refill Encounter Details Date Type Department Care Team (Late st Contact Info) Description 10/04/2018 Refill [facility] Family Practice [address] [place], [place] [phone] Adri Tejada PA-C [address] [place], [place] [id number] Social History Tobacco Use Types Packs/Day Years Used Date Smoking Tobacco: Never Smokeless Tobacco: Never Alcohol Use Standard Drinks/Week Comments No 0 (1 standard drink = 0.6 oz pur e alcohol) Sex and Gender Information Value Date Recorded Sex Assigned at Not on file Gender Identity Not on file Sexual Orientation Not on file documented as of this encounter Miscellaneous Notes * Telephone Encounter - Yin Izquierdo RN - 10/07/2018 9:35 AM CDT Spoke with patient's mother Rose Marie and she was informed that pt would need a px prior to further refills. Rose Marie stated that pt had a px at [facility] recently and will have note faxed for adri tejada's review. * Telephone Encounter - Adri Tejada PA-C - 10/05/2018 9:47 AM CDT She is given 3months. I last saw her Sep 2017. Is due for px/med refill appt. Please advise and help arrange. Thx. * Telephone Encounter - Yin Izquierdo RN - 10/04/2018 3:10 PM CDT Situation: Rx refill request from [facility] pharmacy for Felecia Background: Patient last seen for this on 09/20/17 Assessment: Rx was last filled on 08/02/18. Has no upcoming appointments Recommendation: See pending RX documented in this encounter Plan of Treatment Not on file documented as of this encounter Visit Diagnoses Diagnosis Encounter for surveillance of contraceptive pills Surveillance of previously prescribed contraceptive pill documented in this encounter Additional Health Concerns Infection Onset Date Last Indicated Resolved Time Rule Out COVID-19 12/25/2019 12/25/2019 12/28/2019 3:49 PM ASSOCIATE PROGRAMMER documented as of this encounter Care Teams Silk Screen Painter Relationship Specialty Start Date End Date Roberto Aldridge [address] [place] [address] PCP - General Family Practice 11/10/16 03/02/19 [phone], Need To Check ` PCP - General 03/03/19 03/04/19 Roberto Aldridge [address] [place] [address] PCP - General Family Practice 03/05/19 04/29/19 [id number], Need To Check ` PCP - Primary Care Physician 02/04/07 Kiersten Gomez [address] [place] [address] PCP - General 04/30/19 01/15/22 Rose Marie Mcintosh CNM [address] [place] [address] PCP - General Nurse Practitioner 01/16/22 Roberto Aldridge [address] [place] [address] Family Practice 03/03/19 documented as of this encounter
--- OUTSIDE RECORDS SUMMARY | 2023-12-24 16:40 | XMS_ITS ---
Author Organization Unknown Address [address] [place] [phone] Phone Care Team Providers Care Static Balancer Name Role Phone SIMEON OLIVEIRA Attending Unavailable DANA HUGHES Primary Unavailable Immunization Immunization Date Status Additional Notes Code Code System MMR 10/02/2007 Completed 03 CVX MMR 11/11/2002 Completed 03 CVX MMR 11/12/2003 Completed 03 CVX Hep B, adolescent or pediatric 01/29/2009 Completed 08 CVX IPV 09/25/2002 Completed 10 CVX IPV 04/21/2002 Completed 10 CVX IPV 10/02/2007 Completed 10 CVX IPV 06/17/2002 Completed 10 CVX Hib, unspecified formulation 07/22/2003 Completed 17 CVX Hib, unspecified formulation 04/21/2002 Completed 17 CVX Hib, unspecified formulation 06/17/2002 Completed 17 CVX Hib, unspecified formulation 09/25/2002 Completed 17 CVX varicella 07/28/2015 Completed 21 CVX varicella 11/22/2007 Completed 21 CVX Hep B, unspecified formulation 11/22/2007 Completed 45 CVX Hep B, unspecified formulation 01/13/2008 Completed 45 CVX Hep A, ped/adol, 2 dose 05/24/2016 Completed 83 CVX Hep A, ped/adol, 2 dose 07/28/2015 Completed 83 CVX influenza, unspecified formulation 12/08/2020 Completed 88 CVX DTaP, unspecified formulation 04/21/2002 Completed 107 CVX DTaP, unspecified formulation 06/17/2002 Completed 107 CVX DTaP, unspecified formulation 07/22/2003 Completed 107 CVX DTaP, unspecified formulation 09/25/2002 Completed 107 CVX DTaP, unspecified formulation 10/02/2007 Completed 107 CVX Influenza, live, trivalent, intranasal 12/15/2011 Completed 111 CVX Influenza, live, trivalent, intranasal 12/22/2009 Completed 111 CVX meningococcal MCV4P 10/09/2014 Completed 114 CVX meningococcal MCV4P 09/26/2018 Completed 114 CVX meningococcal MCV4P 07/28/2015 Completed 114 CVX Tdap 10/09/2014 Completed 115 CVX Novel [id number], preservative-free 01/07/2009 Completed 126 CVX Novel [id number] 12/10/2008 Completed 127 CVX Influenza, split virus, trivalent, PF 03/04/2013 Completed 140 CVX Influenza, split virus, trivalent, preservative 01/17/2016 Completed 141 CVX Influenza, split virus, trivalent, preservative 01/29/2009 Completed 141 CVX Influenza, split virus, trivalent, preservative 01/11/2011 Completed 141 CVX Influenza, live, quadrivalen t, intranasal 12/12/2013 Completed 149 CVX Influenza, split virus, quadrivalent, PF 12/10/2017 Completed 150 CVX Influenza, split virus, quadrivalent, PF 12/08/2016 Completed 150 CVX meningococcal B, OMV 07/28/2015 Completed 163 CVX HPV9 10/06/2016 Completed 165 CVX HPV9 09/20/2017 Completed 165 CVX HPV9 07/28/2015 Completed 165 CVX HPV9 05/24/2016 Completed 165 CVX Influenza, MDCK, quadrivalen t, PF 11/21/2019 Completed 171 CVX COVID-19, mRNA, LNP-S, PF, 3 0 mcg/0.3 mL dose 02/16/2021 Completed 208 CVX Results URINE - Collect Da te/Time: 02/05/2023 15:40 [facility] ID: [id number] [address] [place] [address], [id number] LOINC: 2112-1 Test Value Unit Reference Range Code Code System Flag PREG URINE NEGATIVE 61430-6 LOINC Social History Type Status Start Date End Date Code Code Syst em Smoking History Never smoker (Never Smoked) 581604416 SNOMED CT Sex Female Medications Medication Start Date End Date Route Frequency Dose Code Code System Medication Instructions Home Meds Propranolol HCl 20MG Oral Tablet 03/13/2019 02/05/2023 ORAL NEEDED DAILY 772123 RxNorm TAKE 1-2 TABLET ORAL NEEDED DAILY ALPRAZolam 0.25MG Oral Tablet 05/03/2019 02/05/2023 ORAL NEEDED TWICE A DAY 1 TABLET 253939 RxNorm TAKE 1 TABLET ORAL NEEDED TWICE A DAY Felecia 3MG-0.03MG Oral Tablet 02/05/2023 Unknown ORAL EVERY DAY 1 TABLET 418063 RxNorm TAKE 1 TABLET ORAL EVERY DAY Hospital Discharge Instructions Should you have any questions prior to discharge, please contact a member of your healthcare team. If you have left the hospital and have any questions, please contact your primary care physician. Reason For Referral No Data Found Allergies and Adverse Reactions Allergy Substance Reaction Severity Start Date Concern Status Co de Code System CIPRO Active 20340722 RxNorm PENICILLIN Active Plan of Treatment No Data Found Encounters Encounter Diagnosis Start Date Code Code Sys tem Acne, unspecified 02/05/2023 SNOMED-CT Personal Care Team Section Performer Name Performer Role Active Date Inactive Da flores
--- OUTSIDE RECORDS SUMMARY | 2023-12-24 16:40 | XMS_ITS | Encounter Summary ---
Author Organization [facility] enter Address [address] [place] [phone] Phone Care Team Providers Care Call Center Director Name Role Phone Roberto Aldridge Unavailable [phone], Need To Check Unavailable Unavailabl Kiersten Burton Primary Care Provider [phone] Rose Marie Mcintosh [facility] Primary Care Provider Encounter Details Date Type Department Care Team (Late st Contact Info) Description 01/11/2021 Telephone [facility] [address] [place] [phone] Drew Butcher, PA-C [address] [place] [phone] Social History Tobacco Use Types Packs/Day Years [...] encounter Miscellaneous Notes * Telephone Encounter - Michelle Godinez RN - 01/11/2021 1:20 PM CST Err ER documented in this encounter Plan of Treatment Not on file documented as of this encounter Visit Diagnoses Not on filedocumented in this encounter Additional Health Concerns Assessment Noted Time PHQ-9 Depression Total Score: 11 020 2:09 PM CDT PHQ-2 Depression Total Score: 3 04/30/19 20 2:09 PM CDT documented as of this encounter Care Teams Call Center Director Relationship Specialty Start Date End Date [id number], Need To Check ` PCP - Primary Care Physician 02/04/07 Kiersten Gomez [address] [place] [address] PCP - General 04/30/19 01/15/22 Rose Marie Mcintosh CNM [address] [place] [address] PCP - General Nurse Practitioner 01/16/22 Roberto Aldridge [address] [place] [address] Family Practice 03/03/19 documented as of this encounter
--- OUTSIDE RECORDS SUMMARY | 2023-12-24 16:40 | XMS_ITS | Clinical Summary ---
Author Organization [facility] Address [facility] [place] [address] Care Team Providers Care Commercial Underwriter Name Role Phone PcpBronson MD Primary Care Provider [phone] Source Comments If you need additional information that is not available on Care Everywhere, please contact our Medical Records Department during business hours (Sunday - Sunday, 8 am - 5 pm) at . During nonbusiness hours, please contact our Trauma and Emergency Center at .[facility] Allergies Active Allergy Reactions Criticality Noted Date Comments Amoxicillin-Pot Clavulanate Rash 07/21/19 15 Ciprofloxacin Other Low 08/26/2021 Potassium Clavulanate Unknown 02/18/2016 Medications * Medications may not be up to date as of this document. Always verify current medications with the patient. 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 Euthyroid. Recommend checking thyroid function test every 6-12 months. 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, not intractable 08/05/2019 Intermittent explosive disorder in pediatric pat ient 05/01/2019 Exertional dyspnea 03/13/2019 Irritable bowel syndrome with constipation 05/24 Allergic rhinitis 12/06/2015 Hypogeusia 11/05/2015 Hypertrophy of nasal turbinates 11/05/2015 Impaired sense of smell 01/21/2015 History of meningitis 01/21/2015 Antritis chronic 01/21/2015 Resolved Problems Problem Noted Date Diagnosed Date Resolved Date Sprain of ulnar collateral l igament of right elbow 05/12/2015 08/05/2019 Immunizations Name Administration Dates Next Due DTaP 10/02/2007, 4,09/25/2002,06/17,04/21/2002 HIB, Unspecified 07/22/2003, 3,06/17/2002,04/21 HPV9 09/20/2017, 7,05/24/2016,07/27 Hepatitis A Pediatric, Unspecified 05/24/2016, Hepatitis A, pediatric/adolescent 07/28/2015 Hepatitis B, Adolescent or Pediatric 01/29/2009, 01/13/2008,11/22/2007 Hepatitis B, unspecified 01/29/2009,01/13/2008,1 Influenza A H1N1 12/10/2008 Influenza A H1N1 (PF) 01/07/2009 Influenza MDCK PF Quadrivalent 11/21/2019 Influenza MDCK Quadrivalent 11/19/2019 Influenza Nasal Quadrivalent 12/12/2013 Influenza Nasal Trivalent Live 12/15/2011,2009 Influenza Quadrivalent PF (d ose 0.5 mL) 12/10/2017,12/08/2016 Influenza Trivalent 01/17/2016, 1,01/29/2009,02/26,01/23/2003 Influenza Trivalent PF 03/04/2013 Influenza, Unspecified 12/08/2020 MMR Live 10/02/2007,11/12/2003,11/11/2002 Meningococcal B, OMV 07/28/2015 Meningococcal MCV4P 09/26/2018,07/28/2015,2014 Pfizer SARS-CoV-2 (Purple Cap) 02/16/2021,2020,05/12/2020 Poliovirus, unspecified 10/02/2007,09/25,06/17/2002,04/21 Tdap 10/09/2014 Varicella Live 07/28/2015,11/22/2007 Medical History Medical History Date Comments Concussion fall 2013 Concussion 07/18/2014 Exercise-induced asthma Environmental allergies Neurocardiogenic syncope 08/05/2019 Sprain of ulnar collateral ligament of right elb ow 05/12/2015 Menstrual migraine without status migrainosus, n ot intractable 08/05/2019 Irritable bowel syndrome with constipation 017 History of COVID-19 Positive 01/11/2021 01/13/20 21 Family History Relation Name Status Comments Father Kamari Alive Mother Rose Marie Alive Sister Alive Social History Tobacco Use Types Packs/Day Years Used Date Smoking Tobacco: Never Smokeless Tobacco: Never Tobacco Cessation:Counseling Given: Yes Alcohol Use Standard Drinks/Week Comments No 0 (1 standard drink = 0.6 oz pur e alcohol) Social Connection and Isolat ion Panel [NHANES] Answer Date Recorded In a typical week, how many times do you talk on the phone with family, friends, or neighbors? More than three times a week 10/24/2021 Frequency of Social Gatherin gs with Friends and Family Not on file 10/24/2021 Attends Latter-Day Services Not on file 10/24 Active Member of Clubs or Organizations Not on f ile 10/24/2021 Attends Club or Organization Meetings Not on lopez e 10/24/2021 Marital Status Not on file 10/24/2021 AUDIT-C Answer Date Recorded Q1: How often do you have a drink containing alc ohol? 2-4 times a month 10/24/2021 Q2: How many drinks containi ng alcohol do you have on a typical day when you are drinking? 1 or 2 10/24/2021 Q3: How often do you have si x or more drinks on one occasion? Less than monthly 10/24/2021 Overall Financial Resource Strain (CARDIA) Answe r Date Recorded How hard is it for you to pa y for the very basics like food, housing, medical care, and heating? Not very hard 10/24/2021 [facility] - Occupational Stress Questionnaire Answer Date Recorded Do you feel stress - tense, restless, nervous, or anxious, or unable to sleep at night because your mind is troubled all the time - these days? Rather much 10/24/2021 Exercise Vital Sign Answer Date Recorde d On average, how many days pe r week do you engage in moderate to strenuous exercise (like a brisk walk)? 6 days 10/24/2021 On average, how many minutes do you engage in exercise at this level? 60 min 10/24/2021 Hunger Vital Sign Answer Date Recorded Within the past 12 months, y ou worried that your food would run out before you got the money to buy more. Never true 10/25/19 22 Within the past 12 months, t he food you bought just didn't last and you didn't have money to get more. Never true 10/24/2021 PRAPARE - Transportation Answer Date Re corded In the past 12 months, has l ack of transportation kept you from medical appointments or from getting medications? No 06/2021 In the past 12 months, has l ack of transportation kept you from meetings, work, or from getting things needed for daily living? No 10/24/2021 Housing Stability Vital Sign Answer Kevin e Recorded In the last 12 months, was t here a time when you were not able to pay the mortgage or rent on time? No 10/24/2021 In the last 12 months, how many places have you lived? 2 10/24/2021 In the last 12 months, was t here a time when you did not have a steady place to sleep or slept in a alf (including now)? No 10/24/2021 Depression (GHS) Answer Date Recorded PHQ2 Not on file 10/09/2014 PHQ4 Not on file 10/09/2014 PHQ9 Score 0 10/09/2014 Suicide Risk Alert Not on file 10/09/2014 Sex and Gender Information Value Date Recorded Sex Assigned at Not on file Gender Identity Not on file Sexual Orientation Not on file Obstetrics History Last Filed Vital Signs Vital Sign Reading Time Taken Comments Blood Pressure 102/62 10/28/2021 12:50 PM CDT Pulse 80 10/28/2021 12:50 PM CDT Temperature 35.6 ??C (96 ??F) 02/04/2020 9:36 AM LEVELMAN Respiratory Rate - - Oxygen Saturation - - Inhaled Oxygen Concentration - - Weight 67.9 kg (149 lb 11.2 oz) 022 12:50 PM CDT Height 158 cm (5' 2.21) 10/28/2021 12: 50 PM CDT Body Mass Index 27.2 10/28/2021 12:50 PM CDT Plan of Treatment Health Maintenance Due Date Last Done Comments DIABETES SCREENING 2001 CERVICAL CANCER SCREENING 12/14/2019 LIPID SCREEN 12/14/2019 CHLAMYDIA SCREEN 10/07/2022 10/07/2021, 12/12/2019 TSH 10/07/2022 10/07/2021, 0306/2021, 01/19/2021, Additional history exists DEPRESSION/ANXIETY PHQ4 10/28/2022 10/29/19 22, 10/28/2021, 08/06/2020, Additional history exists WELLNESS VISIT 10/28/2022 10/28/2021, 07/20, 08/05/2019, Additional history exists COVID-19 Vaccine ( season) 2023 02/16/2021, 06/06/2020, 05/12/2020 Influenza Vaccine (#1) 2023 , 11/21/2019, 11/19/2019, Additional history exists DTaP/Tdap/Td Vaccine (7 - Td or Tdap) 10/09/2024 10/09/2014, 10/02/2007, 07/22/2003, Additional history exists RSV Vaccine (1 - 1-dose 75+ series) 2076 POLIO (IPV) Vaccine Completed 10/02/2007, 09/25/2002, 06/17/2002, Additional history exists Hepatitis B Vaccine Completed 01/29/2009, 01/29/2009, 01/13/2008, Additional history exists PERTUSSIS Completed 10/09/2014 HPV Vaccine Completed 09/20/2017, 09/19, 05/24/2016, Additional history exists PNEUMOCOCCAL AGES 0-64 YEARS Aged Out No longer eligible based on patient's age to complete this topic Procedures Procedure Name Priority Date/Time Associated Diagnosis Comments INFECTIOUS AGENT ANTIGEN DETECTION; TRICHOMONAS RNA Routine 10/07/2021 11:10 AM CDT Screen for STD (sexually transmitted disease) LAB TSH Routine 10/07/2021 11:02 AM CDT Lubna's thyroiditis from Last 3 Months or Most Recently Relevant to Health Maintenance Results * KOMAL CHLAMYDIA/N. GONORRHOEAE/TRICHOMONAS RNA (10/07/2021 11:10 AM CDT) CHLAMYDIA RNA Negative Negative 10/10/2021 12:24 PM CDT [facility] Comment:This is an appended report. These results have been appended to a previously preliminary verified report. NEIS. GONORRHOEAE RNA Negative Negative 10/10/2021 12:24 PM CDT [facility] Comment:This is an appended report. These results have been appended to a previously preliminary verified report. TRICHOMONAS RNA Negative Negative 12:24 PM CDT [facility] Swab VAGINAL STRUCTURE / Unknown 10/07/2021 11:10 AM CDT 10/07/2021 11:13 AM CDT Narrative [facility] - 10/10/2021 12:24 PM CDT C.trachomatis, Neis. gonorrhoeae & Trichomonas vaginalis testing by [facility]. Kiersten Gomez DO MICROBIOLOGY - GENE RAL ORDERABLES [facility] [address] [place] [address] * LAB TSH (10/07/2021 11:02 AM CDT) TSH 4.81 0.40 - 5.50 uU/mL 10/07/2021 8:38 PM CDT [facility] Blood BLOOD SPECIMEN / Unknown Venipuncture / Unknown 10/07/2021 11:02 AM CDT 10/07/2021 11:02 AM CDT Narrative [facility] - 10/07/2021 8:38 PM CDT Reference Range During : First Trimester: ?? 0.10 to 2.50 uU/mL Second Trimester: ??0.20 to 3.00 uU/mL Third Trimester: ?? 0.30 to 3.00 uU/mL Kiersten Gomez DO CHEMISTRY ORDERABLE S Performing Organization Address City/State/[facility] Co de Phone Number [facility] [address] [place] [address] from Last 3 Months or Most Recently Relevant to Health Maintenance Care Teams Commercial Underwriter Relationship Specialty Start Date End Date Bronson Henson MD [address] [facility] [address] [place] [address] PCP - General 12/23/21
--- OUTSIDE RECORDS SUMMARY | 2023-12-24 16:40 | XMS_ITS | Encounter Summary ---
Author Organization [facility] enter Address [address] [place] [address] Phone Care Team Providers Care Fire Medic Name Role Phone Roberto Aldridge Primary Care Provider [phone], Need To Check Primary Care Provider Unav ailable Roberto Aldridge Primary Care Provider [phone] Roberto Aldridge Unavailable [id number], Need To Check Unavailable UnavailKiersten Sawyer Primary Care Provider [phone] Rose Marie Mcintosh [facility] Primary Care Provider Encounter Details Date Type Department Care Team (Late st Contact Info) Description 10/10/2017 Telephone [facility] [address] [place] [address] Wm, Echo Social History Tobacco Use Types Packs/Day Years Used Date Smoking Tobacco: Never Smokeless Tobacco: Never Sex and Gender Information Value Date Recorded Sex Assigned at Not on file Gender Identity Not on file Sexual Orientation Not on file documented as of this encounter Miscellaneous Notes * Telephone Encounter - Emma Walton - 10/16/2017 1:28 PM CDT I called Roslyn's mom back and then transferred to Latosha, RN to give results. Emma Walton * Telephone Encounter - Megan Rasheed - 10/16/2017 12:11 PM CDT Patient's mother called in to see if results from the echo were back yet. Please call her to discuss this. * Telephone Encounter - Emma Walton - 10/10/2017 1:24 PM CDT I returned a call to Roslyn's mom, Rose Marie. We discussed the availability. We will leave it as scheduled. Emma Walton * Telephone Encounter - Megan Rasheed - 10/10/2017 12:23 PM CDT Patient's mother called in regarding echo on 10.15. Would like to somehow get the appointment later in the day. I stated we had no openings. She would like to talk to Emma regarding this matter. Thank you. documented in this encounter Plan of Treatment Not on file documented as of this encounter Visit Diagnoses Not on filedocumented in this encounter Additional Health Concerns Infection Onset Date Last Indicated Resolved Time Rule Out COVID-19 12/25/2019 12/25/2019 12/28/2019 3:49 PM ORIENTATION AND MOBILITY SPECIALIST documented as of this encounter Care Teams Fire Medic Relationship Specialty Start Date End Date Roberto Aldridge [address] [place] [address] PCP - General Family Practice 11/10/16 03/02/19 [id number], Need To Check ` PCP - General 03/03/19 03/04/19 Roberto Aldridge [address] [place] [address] PCP - General Family Practice 03/05/19 04/29/19 [id number], Need To Check ` PCP - Primary Care Physician 02/04/07 Kiersten Gomez [address] [place] [address] PCP - General 04/30/19 01/15/22 Rose Marie Mcintosh CN [address] [place] [address] PCP - General Nurse Practitioner 01/16/22 Roberto Aldridge [address] [place] [phone] Family Practice 03/03/19 documented as of this encounter
--- OUTSIDE RECORDS SUMMARY | 2023-12-24 16:40 | XMS_ITS | Encounter Summary ---
Author Organization [facility] enter Address [address] [place] [address] Phone Care Team Providers Care Glaze Carrier Name Role Phone Roberto Aldridge Primary Care Provider [phone], Need To Check Primary Care Provider Unav ailable Roberto Aldridge Primary Care Provider [phone] Roberto Aldridge Unavailable [phone], Need To Check Unavailable UnavailKiersten Sawyer Primary Care Provider [phone] Rose Marie Mcintosh [facility] Primary Care Provider Reason for Visit * Reason Comments Medication Refill Encounter Details Date Type Department Care Team (Late st Contact Info) Description 12/23/2018 Refill [facility] [address] [place] [address] Jill Alicea PA-C [address] [place], [place] [id number] Social History Tobacco Use Types Packs/Day Years [...] Telephone Encounter - Yin Izquierdo RN - 12/23/2018 2:38 PM CST Patient's mother was notified that an appointment is needed for further refills. They will call to make an appt. ACE WATER TECHNICIAN * Telephone Encounter - Jill Alicea PA-C - 12/23/2018 2:27 PM CST Please call Roslyn. She is given 3months. Long over due for px appt. Needs appt before more refills will be given. Thx. ACE WATER TECHNICIAN * Telephone Encounter - Yin Izquierdo RN - 12/23/2018 2:06 PM CST Situation: Rx refill request from [facility] Background: Patient was last seen on 09/20/17. Rx was last filled on 10/05/18 Assessment: Patient was instructed to make follow up appointment for further refills, has no upcoming appointments. Recommendation: See pending rx ACE WATER TECHNICIAN documented in this encounter Plan of Treatment Not on file documented as of this encounter Visit Diagnoses Diagnosis Encounter for surveillance of contraceptive pills Surveillance of previously prescribed contraceptive pill documented in this encounter Additional Health Concerns Infection Onset Date Last Indicated Resolved Time Rule Out COVID-19 12/25/2019 12/25/2019 12/28/2019 3:49 PM SURFACE WATER TECHNICIAN documented as of this encounter Care Teams Glaze Carrier Relationship Specialty Start Date End Date Roberto Aldridge [address] [place] [address] PCP - General Family Practice 11/10/16 03/02/19 [id number], Need To Check ` PCP - General 03/03/19 03/04/19 Roberto Aldridge [address] [place] [address] PCP - General Family Practice 03/05/19 04/29/19 [id number], Need To Check ` PCP - Primary Care Physician 02/04/07 Kiersten Gomez [address] [place] [address] PCP - General 04/30/19 01/15/22 Rose Marie Mcintosh CNM [address] [place] [address] PCP - General Nurse Practitioner 01/16/22 Roberto Aldridge [address] [place] [id number] Family Practice 03/03/19 documented as of this encounter
--- OUTSIDE RECORDS SUMMARY | 2023-12-24 16:40 | XMS_ITS ---
Author Organization Unknown Address [address] [place] [phone] Phone Care Team Providers Care Hydraulic Corrugating Machine Operator Name Role Phone SIMEON OLIVEIRA Attending Unavailable [...] CVX Tdap 10/09/2014 Completed 115 CVX Novel [id number], preservative-free 01/07/2009 Completed 126 CVX Novel [id number] 12/10/2008 Completed 127 CVX Influenza, split virus, [...] mcg/0.3 mL dose 02/16/2021 Completed 208 CVX Social History Type Status Start Date End Date Code Code Syst em Smoking History Never smoker (Never Smoked) 738718646 SNOMED CT Sex Female Vital Signs Vital Sign Value Unit [place] Value [place] Unit Date/Time Recent/Initial? Code Code System Body Mass Index 25.12 kg/m2 02/05/2023 14:27 Initial 43080 -5 LOINC Systolic Blood Pressure 102 mm[Hg] 02/05/2023 14:27 Initial 8480- 6 LOINC Diastolic Blood Pressure 52 mm[Hg] 02/05/2023 14:27 Initial 8462- 4 LOINC Body Surface Area 1.67 m2 02/05/2023 14:27 Initial 3140- 1 LOINC Height 159.004 0 cm 62.60 in 02/05/2023 14:27 Initial 8302- 2 LOINC O2 Saturation 98 % 2022 14:27 Initial 00790 -5 LOINC Pulse 70.0 /min 02/05/2023 14:27 Initial 8867- 4 LOINC Respiration 16 /min 02/06/20 14:27 Initial 9279- 1 LOINC Temperature 36.6 Adrianne 97.9 F 02/06/20 14:27 Initial 8310- 5 LOINC Weight 63.50 kg 140.00 lbs 02/05/2023 14:27 Initial 90226 -7 LOINC Medications Medication Start Date End Date Route Frequency Dose Code Code System Medication Instructions Home Meds Propranolol HCl 20MG Oral Tablet 03/13/2019 02/05/2023 ORAL NEEDED DAILY 371903 RxNorm TAKE 1-2 TABLET ORAL NEEDED DAILY ALPRAZolam 0.25MG Oral Tablet 05/03/2019 02/05/2023 ORAL NEEDED TWICE A DAY 1 TABLET 581715 RxNorm TAKE 1 TABLET ORAL NEEDED TWICE A DAY Felecia 3MG-0.03MG Oral Tablet 02/05/2023 Unknown ORAL EVERY DAY 1 TABLET 063511 RxNorm TAKE 1 TABLET ORAL EVERY DAY [...] 20340722 RxNorm PENICILLIN Active Plan of Treatment Future Order Description Future Order Date Futu re Order Loinc: URINE 02/05/2023 LOINC: 2112-1 Encounters Encounter Diagnosis Start Date Code Code Sys tem Adult health examination 02/05/2023 [id number] [facility] [place] Personal Care Team Section Performer Name Performer Role Active Date Inactive Da flores
--- OUTSIDE RECORDS SUMMARY | 2023-12-24 16:40 | XMS_ITS | Encounter Summary ---
Author Organization [facility] enter Address [address] [place] [address] Phone Care Team Providers Care Loss Control Consultant Name Role Phone Roberto Aldridge Unavailable [phone], Need To Check Unavailable Unavailabl e Rose Marie Mcintosh [facility] Primary Care Provider Reason for Visit * Reason Comments Other Requesting to have T hyroid checked Encounter Details Date Type Department Care Team ([facility] st Contact Info) Description 10/17/[address] [phone] Rose Marie Mcintosh, [address] [phone] Social History Tobacco Use Types Packs/Day Years [...] Telephone Encounter - Eliza Bonilla RN - 10/17/2023 11:35 AM CDT Roslyn replied through [employer] saying all of the offered labs sound great. Labs pended. Please reviewand sign. Thank you. * Telephone Encounter - Eliza Bonilla RN - 10/17/2023 10:01 AM CDT I attempted to call patient. No answer, so [employer] message was sent. Will wait for reply then order/schedule labs. * Telephone Encounter - Rose Marie Mcintosh CNM - 10/17/2023 9:33 AM CDT Yes. I can order a TSH . Could you please ask Roslyn if it is ok if we also check a free T4 and T3 and also CBC and ferritin levels? Thank you,. * Telephone Encounter - Eliza Bonilla RN - 10/17/2023 8:41 AM CDT Situation: Roslyn reached out to scheduling through [employer] to have thyroid checked. Background: Last appointment was 07/27/23 with Rose Marie Esteban for a physical. Note states: Blood work discussed today. She would like to recheck a TSH later this year or next year but not atthis time since she has been feeling good. Last TSH was 4.81 on 10-07-21. She has also taken iron inthe past and would like to have her iron checked last this year or next year again. Last thyroid labs are in [facility] included TSH, Free T4 and T3 and were normal. Assessment: Requesting labs Recommendation: Please review and advise if ok to order labs. We can call or send [employer] message to Roslyn to let her know. Thank you. * Telephone Encounter - Eliza Crandall - 10/17/2023 8:22 AM CDT Roslyn sent in a message requesting to have her Thyroid checked. Would Rose Marie be willing to put in a lab order for this? documented in this encounter Plan of Treatment Not on file documented as of this encounter Results * [facility] T3, TOTAL (10/19/2023 7:54 AM CDT) Pathologist [facility] T3 (Triiodothyron ine), Total - Serum - Arthur 149 80 - 200 ng/dL 10/20/2023 8:51 AM CDT [facility] Blood Venipuncture / Unknown 10/19/2023 7:54 AM CDT 10/19/2023 7:56 AM CDT Narrative [facility] - 10/20/2023 8:51 AM CDT Test Performed by: [facility] [address] [place] [address] Exhauster: Neisha Jackman Ph.D.; CLIA# [id number] Rose Marie Esteban [facility] [address] [place] [address], [place] [phone] * [facility] FERRITIN (10/19/2023 7:54 AM CDT) Pathologist [facility] Ferritin - [facility] 42 20 - 200 ng/mL 10/19/2023 9:04 AM CDT [facility] Blood Venipuncture / Unknown 10/19/2023 7:54 AM CDT 10/19/2023 7:56 AM CDT Rose Marie Esteban [facility] [address] [address], [place] [phone] * (ABNORMAL) [facility] CBC WITH DIFFERENTIAL (10/19/2023 7:54 AM CDT) [facility] WBC Count - [facility] 8.78 3.44 - 9.56 x10(9)/L 10/19/2023 8:21 AM CDT [facility] RBC Count - [facility] 4.73 3.92 - 5.13 x10(12)/L 10/19/2023 8:21 AM CDT [facility] Hemoglobin - [facility] 13.7 11.6 - 15.0 g/dL 10/19/2023 8:21 AM T [facility] Hematocrit - [facility] 40.7 35.5 - 44.9 % 10/19/2023 8:21 AM T [facility] MCV (Mean Corpuscular Volume) - [facility] 86.0 78.2 - 97.9 fl 10/19/2023 8:21 AM T [facility] Platelet Count - [facility] 323 157 - 371 x10(9)/L 10/19/2023 8:21 AM [facility] RDW (RBC Distribution Width)-CV - [facility] 11.7(L) 12.2 - 16.1 % 10/19/2023 8:21 AM [facility] Blood Venipuncture / Unknown 10/19/2023 7:54 AM CDT 10/19/2023 7:56 AM CDT Rose Marie Esteban CNM [facility] [address] [place] [address], [place] [phone] * (ABNORMAL) [facility] T4, FREE (10/19/2023 7:54 AM CDT) Pathologist [facility] T4 (Thyroxine), Free - [facility] 0.83(L) 0.90 - 1.70 ng/dL 10/19/2023 9:10 AM CDT [facility] Comment: Caution: ??Patients taking multivitamins containing biotin within 12 hours of being drawn may have falsely increased free T4 results. Blood Venipuncture / Unknown 10/19/2023 7:54 AM CDT 10/19/2023 7:56 AM CDT Rose Marie Esteban CNM [facility] Performing Organization Address [facility] [place] [address], * (ABNORMAL) [facility] THYROID-STIMULATING HORMONE (TSH) (10/19/2023 7:54 AM CDT) [facility] TSH (Thyroid Stimulating Hormone) - [facility] 4.23(H) 0.30 - 4.20 uIU/mL 10/19/2023 9:11 AM CDT [facility] Comment: Caution: ??Patients taking multivitamins containing biotin within 12 hours of being drawn may have falsely decreased TSH results. Blood Venipuncture / Unknown 10/19/2023 7:54 AM CDT 10/19/2023 7:56 AM CDT Rose Marie Esteban CNM [facility] Performing Organization Address [facility] [place] [address], documented in this encounter Visit Diagnoses Diagnosis Lubna's thyroiditis- Primary Chronic lymphocytic thyroiditis Screening for iron deficiency anemia documented in this encounter Additional Health Concerns Assessment Noted Time PHQ-9 Depression Total Score: 2 07/27/19 24 1:05 PM CDT A fall risk assessment has been complete d for the patient 10/18/2021 1:23 PM CDT PHQ-2 Depression Total Score: 0 07/27/19 24 1:05 PM CDT documented as of this encounter Care Teams Loss Control Consultant Relationship Specialty Start Date End Date [id number], Need To Check ` PCP - Primary Care Physician 02/04/07 Rose Marie Mcintosh CNM [address] [place] [address] PCP - General Nurse Practitioner 01/16/22 Roberto Aldridge [address] [place] [address] Family Practice 03/03/19 documented as of this encounter
--- OUTSIDE RECORDS SUMMARY | 2023-12-24 16:40 | XMS_ITS | Encounter Summary ---
Author Organization [facility] enter Address [address] [place] [address] Phone Care Team Providers Care Alumni Relations Coordinator Name Role Phone Roberto Aldridge Primary Care Provider [phone], Need To Check Primary Care Provider Unav ailable Roberto Aldridge Primary Care Provider [phone] Roberto Aldridge Unavailable [phone], Need To Check Unavailable UnavailKiersten Sawyer Primary Care Provider [phone] Rose Marie Mcintosh [facility] Primary Care Provider Encounter Details Date Type Department Care Team (Late st Contact Info) Description 12/24/2017 Telephone [facility] [address] [place], [place] [phone] Rose Marie Mcintosh [facility] [address] [place] [address] Social History Tobacco Use Types Packs/Day Years [...] encounter Miscellaneous Notes * Telephone Encounter - Rose Marie Mcintosh CNM - 12/24/2017 1:25 PM HANDYMAN Yesterday I spoke with Roslyn and she was complaining of dysuria again. This had not bothered her fora couple of weeks but was a burning sensation in the vaginal area. She has had no new partners or other symptoms. I also spoke with her mother Rose Marie who requested that I help them find the next step in their evaluation. I consulted with Dr. Alejandre today. He reviewed her clean-catch UA specimens overthe past few months. Most of them were contaminated with epithelial cells so he did suggest that she provide another clean-catch UA and do a very careful job of trying to provide a clean specimen. I did talk with Rose Marie today and she will try to bring in Roslyn today or tomorrow for to provide the specimen. We will call her with results. Dr. Aeljandre would be happy to see her after that as well if thisissue is still not resolved. She verbalized understanding and is in agreement with this plan of care. YMAN documented in this encounter Plan of Treatment Not on file documented as of this encounter Results * [facility] URINALYSIS WITH REFLEX TO MICROSCOPIC (12/26/2017 4:45 PM HANDYMAN) Color - Urine - [facility] Yellow 12/26/2017 4:53 PM [facility] Clarity - Urine - [facility] Clear 12/26/2017 4:53 PM [facility] Bilirubin - Urine - [facility] Negative Negative 12/26/2017 4:53 PM [facility] Ketones - Urine - [facility] Negative Negative mg/dL 12/26/2017 4:53 PM [facility] Specific [place] - Urine - [facility] 1.025 1.003 - 1.030 12/26/2017 4:53 PM [facility] Blood - Urine - [facility] Negative Negative 12/26/2017 4:53 PM [facility] pH - Urine - [facility] 7.0 4.5 - 8.0 12/27/19 18 4:53 PM HANDYMAN [facility] Protein - Urine - [facility] Negative <30 mg/dL 12/26/2017 4:53 PM HANDYMAN [facility] Urobilinogen - Urine - [facility] 0.2 <=1.0 E.U./dL 12/26/2017 4:53 PM HANDYMAN [facility] Nitrite - Urine - [facility] Negative Negative 12/26/2017 4:53 PM HANDYMAN [facility] Leukocyte Esterase - Urine - [facility] Negative Negative 12/26/2017 4:53 PM HANDYMAN [facility] Glucose - Urine - [facility] Negative Negative 12/26/2017 4:53 PM HANDYMAN [facility] Microscopic needed? - Urine - [facility] No 12/26/2017 4:53 PM HANDYMAN [facility] Urine specimen (specimen) 12/26/2017 4:45 PM HANDYMAN 12/26/2017 4:45 PM HANDYMAN Rose Marie Esteban CNM [facility] [address] [place] [address], documented in this encounter Visit Diagnoses Diagnosis Dysuria- Primary documented in this encounter Additional Health Concerns Infection Onset Date Last Indicated Resolved Time Rule Out COVID-19 12/25/2019 12/25/2019 12/28/2019 3:49 PM HANDYMAN documented as of this encounter Care Teams Alumni Relations Coordinator Relationship Specialty Start Date End Date Roberto Aldridge [address] [place] [address] PCP - General Family Practice 11/10/16 03/02/19 [id number], Need To Check ` PCP - General 03/03/19 03/04/19 Roberto Aldridge [address] [place] [address] PCP - General Family Practice 03/05/19 04/29/19 [id number], Need To Check ` PCP - Primary Care Physician 02/04/07 Kiersten Gomez [address] [place] [address] PCP - General 04/30/19 01/15/22 Rose Marie Mcintosh CN [address] [place] [address] PCP - General Nurse Practitioner 01/16/22 Roberto Aldridge [address] [place] [id number] Family Practice 03/03/19 documented as of this encounter
[2023-12-24 18:12] LABS: Free T4 Free Thyroxine* 0.95 ng/dL (0.70-1.85)
[2023-12-27 01:57] LABS: Total T3 169 ng/dL (80-200)
== END 2023-12-24 16:37 | disposition home or self-care (01) ==
LOC: NPINS 16:36
PROVIDERS: Visit Provider Nurse Practitioner Women's Health
DX: E06.3 Autoimmune thyroiditis (principal)
CPT/HCPCS: 84439; 84443; 84480

== ENCOUNTER 2024-05-26 17:26 | Outpatient (REF) | payer BC, SELFPAY ==
[2024-05-26 18:28] LABS: Free T4 Free Thyroxine* 0.99 ng/dL (0.70-1.85)
[2024-05-28 05:09] LABS: Total T3 125 ng/dL (80-200)
== END 2024-05-26 17:27 | disposition home or self-care (01) ==
LOC: NPINS 17:26
PROVIDERS: Referring Provider Registered Nurse; Visit Provider Registered Nurse
DX: E06.3 Autoimmune thyroiditis (principal)
CPT/HCPCS: 84439; 84443; 84460; 84480; 86706; 87340; 87341

== ENCOUNTER 2024-07-23 22:37 | Emergency (ER) | payer BC, SELFPAY ==
[2024-07-23 22:39] VITALS: BP 127/65; PULSE 73; RESP 15; TEMP 36.9; O2SAT 98; BMI 24.1
--- OUTSIDE RECORDS SUMMARY | 2024-07-23 22:40 | XMS_ITS | Encounter Summary ---
Author Organization [facility] enter Address [address] [place] [address] Phone Care Team Providers Care Card Sorter Name Role Phone Roberto Aldridge MD Primary Care Provider [phone], Need To Check Primary Care Provider Unav ailable Roberto Aldridge MD Primary Care Provider [phone] Roberto Aldridge MD Unavailable [phone], Need To Check Unavailable Kiersten Villalobos Primary Care Provider [phone] Rose Marie Mcintosh CNM Primary Care Provider Encounter Details Date Type Department Care Team (Late st Contact Info) Description 12/24/2017 Telephone [facility] [address] [place], [place] [phone] Rose Marie Mcintosh CNM [address] [place] [address] Social History Tobacco Use Types Packs/Day Years Used Date Smoking Tobacco: Never Smokeless Tobacco: Never Alcohol Use Standard Drinks/Week Comments No 0 (1 standard drink = 0.6 oz pur e alcohol) Comments No Sex and Gender Information Value Date Recorded Sex Assigned at Not on file Legal Sex Female 2:14 AM CDT Gender Identity Not on file Sexual Orientation Not on file documented as of this encounter Miscellaneous Notes * Telephone Encounter - Rose Marie Mcintosh CNM - 12/24/2017 1:25 PM BREAD PACKER Yesterday I spoke with Roslyn and she [...] We will call her with results. Dr. Alejandre would be happy to see her after that as well if thisissue is still not resolved. She verbalized understanding and is in agreement with this plan of care. D PACKER documented in this encounter Plan of Treatment Upcoming Encounters Date Type Department Care Team (Late st Contact Info) Description 08/04/2024 10:45 AM CDT Appointment [facility] Family Practice [address] [place] [address] Rose Marie Mcintosh CNM [address] [place] [address] documented as of this encounter Results * [facility] URINALYSIS WITH REFLEX TO MICROSCOPIC (12/26/2017 4:45 PM BREAD PACKER) Color - Urine - [facility] Yellow 12/26/2017 4:53 PM BREAD PACKER [facility] Clarity - Urine - [facility] Clear 12/26/2017 4:53 PM BREAD PACKER [facility] Bilirubin - Urine - [facility] Negative Negative 12/26/2017 4:53 PM [facility] Ketones - Urine - [facility] Negative Negative mg/dL 12/26/2017 4:53 PM [facility] [place] Specific [place] - Urine - [facility] 1.025 1.003 - 1.030 12/26/2017 4:53 PM [facility] Blood - Urine - [facility] Negative Negative 12/26/2017 4:53 PM [facility] pH - Urine - [facility] 7.0 4.5 - 8.0 12/27/19 18 4:53 PM [facility] Protein - Urine - [facility] Negative <30 mg/dL 12/26/2017 4:53 PM [facility] Urobilinogen - Urine - [facility] 0.2 <=1.0 E.U./dL 12/26/2017 4:53 PM [facility] Nitrite - Urine - [facility] Negative Negative 12/26/2017 4:53 PM [facility] [place] Leukocyte Esterase - Urine - [facility] Negative Negative 12/26/2017 4:53 PM [facility] Glucose - Urine - [facility] Negative Negative 12/26/2017 4:53 PM [facility] Microscopic needed? - Urine - [facility] No 12/26/2017 4:53 PM [facility] Urine specimen (specimen) 12/26/2017 4:45 PM BREAD PACKER 12/26/2017 4:45 PM BREAD PACKER us Rose Marie Esteban CNM [facility] Final Result [facility] [address] [place] [address], [place] [phone] documented in this encounter Visit Diagnoses Diagnosis Dysuria- Primary documented in this encounter Additional Health Concerns Infection Onset Date Last Indicated Resolved Time Rule Out COVID-19 12/25/2019 12/25/2019 12/28/2019 3:49 PM BREAD PACKER documented as of this encounter Care Teams Card Sorter Relationship Specialty Start Date End Date Roberto Aldridge MD [address] [place] [address] PCP - General Family Practice 11/10/16 03/02/19 [id number], Need To Check ` PCP - General 03/03/19 03/04/19 Roberto Aldridge MD [address] [place] [address] PCP - General Family Practice 03/05/19 04/29/19 [id number], Need To Check ` PCP - Primary Care Physician 02/04/07 Kiersten Gomez [address] [place] [address] PCP - General 04/30/19 01/15/22 Rose Marie Mcintosh CN [address] [place] [address] PCP - General Nurse Practitioner 01/16/22 Roberto Aldridge MD [address] [place] [address] Family Practice 03/03/19 documented as of this encounter
--- OUTSIDE RECORDS SUMMARY | 2024-07-23 22:40 | XMS_ITS | Encounter Summary ---
Author Organization [facility] enter Address [address] [place] [address] Phone Care Team Providers Care Ocular Care Aide Name Role Phone Roberto Aldridge MD Unavailable [phone], Need To Check Unavailable Unavailabl Kiersten Burton Primary Care Provider [phone] Rose Marie Mcintosh [facility] Primary Care Provider Encounter Details Date Type Department Care Team (Late st Contact Info) Description 01/11/2021 Telephone [facility] - Family Practice [address] [place] [phone] Drew Butcher, PA-C [address] [place] [address] Social History Tobacco Use Types Packs/Day Years [...] RN - 01/11/2021 1:20 PM CST Err DYEING MACHINE OPERATOR documented in this encounter Plan of Treatment Upcoming Encounters Date Type Department Care Team (Late st Contact Info) Description 08/04/2024 10:45 AM CDT Appointment [facility] Practice [address] [place] [address] Rose Marie Mcintosh CNM [address] [place] [address] documented as of this encounter Visit Diagnoses Not on filedocumented in this encounter Additional Health Concerns Assessment Noted Time PHQ-9 Depression Total Score: 11 020 2:09 PM CDT PHQ-2 Depression Total Score: 3 04/30/19 20 2:09 PM CDT documented as of this encounter Care Teams Ocular Care Aide Relationship Specialty Start Date End Date [id number], Need To Check ` PCP - Primary Care Physician 02/04/07 Kiersten Gomez [address] [place] [address] PCP - General 04/30/19 01/15/22 Rose Marie Mcintosh CNM [address] [place] [address] PCP - General Nurse Practitioner 01/16/22 Roberto Aldridge MD [address] [place] [phone] [facility] Practice 03/03/19 documented as of this encounter
--- OUTSIDE RECORDS SUMMARY | 2024-07-23 22:40 | XMS_ITS | Clinical Summary ---
Author Organization [facility] Care Team Providers Care Regulatory Lead Name Role Phone Roberto Aldridge MD Unavailable [phone], Need To Check Unavailable Unavailabl e Rose Marie Mcintosh [facility] Primary Care Provider Source Comments This disclosure is being made pursuant to the Care Everywhere program,applicable federal and state laws, and may not contain all informationavailable regarding this patient.[facility] Practices Allergies Active Allergy Reactions Criticality Noted Date Comments Amoxicillin Trihydrate Unknown 02/18/2016 Amoxicillin-Pot Clavulanate Rash 12/23/19 09 Ciprofloxacin OTHER Low 08/26/2021 Penicillin Rash 03/05/2019 Penicillins Unknown 02/18/2016 Potassium Clavulanate Unknown 02/18/2016 Medications acetaminophen 500 mg tablet Take 2 tablets (1,000 mg total) by mouth every 6 hours as needed. Active ibuprofen 200 mg tablet Take 400 mg by mouth every 6 hours as needed. Active meloxicam 7.5 mg tabletIndication s:Pain in both knees, unspecified chronicity Take 1 tablet (7.5 mg total) by mouth daily. 30 tablet 1 07/27/2023 Active levothyroxine 25 mcg tabletIndication s:Lubna's thyroiditis Take 1 tablet (25 mcg total) by mouth every morning before breakfast. 30 tablet 11/21/2023 Active drospirenone-eth inyl estradiol (CATHERINE) 3-0.03 mg tabletIndication s: control counseling TAKE 1 TABLET BY MOUTH DAILY. 84 tablet 1 04/28/2024 Active Active Problems Problem Noted Date Diagnosed Date Acne vulgaris 10/28/2021 History of COVID-19 01/12/2021 Lubna's thyroiditis 09/18/2020 Overview (10/18/2021): 08/2020 - TPO antibody positive. Euthyroid. Recommend [...] Encounters Date Type Department Care Team Description 04/26/2024 Refill [facility] [address] [place] [address] Rose Marie Mcintosh CNM from Last 3 Months Immunizations Immunization Administration Dates Next Due COVID-19, mRNA 12+ [...] Influenza, PF 03/04/2013 Influenza, live attenuated nasal 12/15/2011,04/2009 Influenza, quadrivalent PF 11/16/2022,12/10/2017 ,12/08/2016 Influenza, quadrivalent [...] (PHQ-9 includes PHQ-2 questions/scor e) 2 07/27/2023 Abuse Risk Answer Date Recorded Are you in an UNsafe relationship? Not on file 04/28/2023 Does your partner/boyfriend or girlfriend hit, kick, hurt, or threaten you? Not on file 04/28/2023 Have you suffered any injury as a result of abuse in the past year? Not on file 04/28/2023 Does your partner/boyfriend or girlfriend ever try to control you by threatening you or your family? Not on file 024 Are you currently being forc ed to engage in sexual activity? Not on file 04/28/2023 Are you being abused or thre atened in your work or home environment? Not on file 04/28/2023 Are you being forced to work? Not on file Is the patient a d ependent adult ? Not on file 04/28/2023 Do you feel unsafe at home? Does not apply 10/2023 Has anyone tried to force yo u to sign papers or to use your money against your will? Does not apply 04/28/2023 Comments No Sex and Gender Information Value Date Recorded Sex Assigned at Not on file Legal Sex Female 2:14 AM CDT Gender Identity Not on file Sexual Orientation Not on file Occupation Industry Job Start Date Job End Date Not on file Not on file Not on file Not on file Last Filed Vital Signs Vital Sign Reading Time Taken Comments Blood Pressure 100/68 07/27/2023 9:45 AM CDT Pulse 72 07/27/2023 9:45 AM CDT Temperature 36.3 C (97.3 F) 07/27/2023 9:45 AM CDT Respiratory Rate 14 09/07/2021 8:56 PM CDT Oxygen Saturation 97% 10/17/2021 5:12 PM CDT Inhaled Oxygen Concentration - - Weight 64.5 kg (142 lb 3.2 oz) 07/27/2023 9:45 A M CDT Height 160 cm (5' 2.99) 07/27/2023 9:45 AM CDT Body Mass Index 25.2 07/27/2023 9:45 AM CDT Plan of Treatment Upcoming Encounters Date Type Department Care Team (Late st Contact Info) Description 08/04/2024 10:45 AM CDT Appointment [facility] Family Practice [address] [place] [address] Rose Marie Mcinotsh, [facility] [address] [place] [address] Health Maintenance Due Date Last Done Comments HIV [place] Screening 2016 HCV Screening 12/14/2019 Chlamydia Screening 12/11/2020 12/12/2019, 8 Gonorrhea Screening 12/11/2020 12/12/2019, 8 Cervical Cancer Screening 2022 Lipid Disorder Screening 2022 [id number]-[id number]-HfD-2 Vaccine ( season) 2023 02/16/2021, 06/06/2020, 05/12/2020 Annual Physical Visit 07/26/2024 07/27/2023 , 07/27/2023, 10/28/2021, Additional history exists Tetanus Diphtheria Pertussis (7 - Td or Tdap) 10/09/2024 10/09/2014, 10/02/2007, 10/02/2007, Additional history exists Influenza Vaccine: Seasonal (Season Ended) 2024 11/16/2022, 12/08/2020, 11/21/2019, Additional history exists Hepatitis B Vaccine Completed 01/29/2009, 01/29/2009, 01/13/2008, Additional history exists Varicella Vaccine Completed 07/28/2015, 11/22/2007 HPV Vaccine Completed 09/20/2017, 09/19, 05/24/2016, Additional history exists MenACWY Meningococcal Vaccine Discontinued , 07/28/2015, 10/09/2014 MenB Meningococcal Vaccine Completed 07/27/2023, Procedures Procedure Name Priority Date/Time Associated Diagnosis Comments [facility] GC/CHLAMYDIA BY GEN PROBE Routine 12/12/2019 1:11 PM CDT Routine screening for STI (sexually transmitted infection) from Last 3 Months or Most Recently Relevant to Health Maintenance Results * [facility] GC/CHLAMYDIA BY GEN PROBE (12/12/2019 1:11 PM CDT) Chlamydia trachomatis Amplified RNA - Source cervix 12/14/2019 5:05 PM CDT [facility] Chlamydia trachomatis Amplified RNA Negative Negative 12/14/2019 5:05 PM CDT [facility] Comment: ADDITIONAL INFORMATION This report is intended for use in clinical monitoring and management of patients. It is not intended for use in medical-legal applications. Neisseria gonorrhoeae Amplified RNA - Source cervix 12/14/2019 5:05 PM CDT [facility] Neisseria gonorrhoeae Amplified RNA Negative Negative 12/14/2019 5:05 PM CDT [facility] Comment: ADDITIONAL INFORMATION This report is intended for use in clinical monitoring and management of patients. It is not intended for use in medical-legal applications. Specimen of unknown material (specimen) 12/12/2019 1:11 PM CDT 12/12/2019 1:15 PM CDT Narrative [facility] - 12/14/2019 5:05 PM CDT Test Performed by: [address] [address] Issuing Operator: Georges Kapoor M.D. Ph.D.; CLIA# [id number] Rose Marie Esteban [facility] MICROBIOLOGY Tanya l Result [facility] [address] [place] [address], from Last 3 Months or Most Recently Relevant to Health Maintenance Insurance [facility] Care Teams Regulatory Lead Relationship Specialty Start Date End Date [id number], Need To Check ` PCP - Primary Care Physician 02/04/07 Rose Marie Mcintosh CNM [address] [place] [address] PCP - General Nurse Practitioner 01/16/22 Roberto Aldridge MD [address] [place] [address] Family Practice 03/03/19
--- OUTSIDE RECORDS SUMMARY | 2024-07-23 22:40 | XMS_ITS | Encounter Summary ---
Author Organization [facility] enter Address [address] [place] [address] Phone Care Team Providers Care Business Instructor Name Role Phone Roberto Aldridge MD Primary Care Provider [phone], Need To Check Primary Care Provider Unav ailable Roberto Aldridge MD Primary Care Provider [phone] Roberto Aldridge MD Unavailable [phone], Need To Check Unavailable Kiersten Villalobos Primary Care Provider [phone] Rsoe Marie Mcintosh [facility] Primary Care Provider Reason for Visit * Reason Comments Medication Refill Encounter Details Date Type Department Care Team (Late st Contact Info) Description 10/04/2018 Refill [facility] - Family Practice [address] [place], [place] [id number] Adri Tejada PA-C [address] [place] [address] Social History Tobacco Use Types Packs/Day Years [...] stated that pt had a px at [facility] recently and will have note faxed for adri tejada's review. * Telephone Encounter - Adri Tejada PA-C - 10/05/2018 9:47 AM CDT She is given 3months. I last saw her Sep 2017. Is due for px/med refill appt. Please advise and help arrange. Thx. * Telephone Encounter - Yin Izquierdo RN - 10/04/2018 3:10 PM CDT Situation: Rx refill request from [facility] pharmacy for Felecia Background: Patient last seen for this on 09/20/17 Assessment: Rx was last filled on 08/02/18. Has no upcoming appointments Recommendation: See pending RX documented in this encounter Plan of Treatment Upcoming Encounters Date Type Department Care Team (Late st Contact Info) Description 08/04/2024 10:45 AM CDT Appointment [facility] - Family Practice [address] [place] [address] Rose Marie Mcintosh, [facility] [address] [place] [address] documented as of this encounter Visit Diagnoses Diagnosis Encounter for surveillance of contraceptive pills Surveillance of previously prescribed contraceptive pill documented in this encounter Additional Health Concerns Infection Onset Date Last Indicated Resolved Time Rule Out COVID-19 12/25/2019 12/25/2019 12/28/2019 3:49 PM DIRECT CARE WORKER documented as of this encounter Care Teams Business Instructor Relationship Specialty Start Date End Date Roberto Aldridge MD [address] [place] [address] PCP - General Family Practice 11/10/16 03/02/19 [id number], Need To Check ` PCP - General 03/03/19 03/04/19 Roberto Aldridge MD [address] [place] [address] PCP - General Family Practice 03/05/19 04/29/19 [id number], Need To Check ` PCP - Primary Care Physician 02/04/07 Kiersten Gomez [address] [place] [address] PCP - General 04/30/19 01/15/22 Rose Marie Mcintosh CN [address] [place] [address] PCP - General Nurse Practitioner 01/16/22 Roberto Aldridge MD [address] [place] [address] Family Practice 03/03/19 documented as of this encounter
--- OUTSIDE RECORDS SUMMARY | 2024-07-23 22:40 | XMS_ITS | Referral Summary ---
Author Organization [facility] Care Team Providers Care Paper Supervisor Name Role Phone Roberto Aldridge MD Unavailable [phone], Need To Check Unavailable Unavailabl e Rose Marie Mcintosh CNM Primary Care Provider Source Comments This disclosure is being made pursuant to the Care Everywhere program,applicable federal and state laws, and may not contain all informationavailable regarding this patient.[facility] Encounters Date Type Department Care Team Description 04/26/2024 Refill [facility] [address] [place] [address] Rose Marie Mcintosh CNM from Last 3 [...] 05/12/2015 11/10/2016 History of meningitis 01/21/20152016 Immunizations Immunization Administration Dates Next Due COVID-19, [...] Info) Description 08/04/2024 10:45 AM CDT Appointment [facility] [address] [place] [address] Rose Marie Mcintosh, [facility] [address] [place] [address] Procedures Procedure Name Priority Date/Time Associated Diagnosis Comments [facility] GC/CHLAMYDIA BY GEN PROBE Routine 12/12/2019 1:11 PM CDT Routine screening for STI (sexually transmitted infection) from Last 3 Months or Most Recently Relevant to Health Maintenance Results * [facility] GC/CHLAMYDIA BY GEN PROBE (12/12/2019 1:11 PM CDT) Chlamydia trachomatis Amplified RNA - Source cervix 12/14/2019 5:05 PM CDT [facility] Chlamydia trachomatis Amplified RNA Negative Negative 12/14/2019 5:05 PM CDT [facility] Comment: ADDITIONAL INFORMATION This report is intended for use in clinical monitoring and management of patients. It is not intended for use in medical-legal applications. Neisseria gonorrhoeae Amplified RNA - Source cervix 12/14/2019 5:05 PM CDT [facility] Neisseria gonorrhoeae Amplified RNA Negative Negative 12/14/2019 5:05 PM CDT [facility] Comment: ADDITIONAL INFORMATION This report is intended for use in clinical monitoring and management of patients. It is not intended for use in medical-legal applications. Specimen of unknown material (specimen) 12/12/2019 1:11 PM CDT 12/12/2019 1:15 PM CDT Narrative [facility] - 12/14/2019 5:05 PM CDT Test Performed by: [facility] [address] , [place] [address] Manager Furniture: Georges Kapoor M.D. Ph.D.; CLIA# [id number] Rose Marie Esteban CNM [facility] MICROBIOLOGY Tanya l Result [facility] [address] [place] [address], from Last 3 Months or Most Recently Relevant to Health Maintenance Insurance [facility] Care Teams Paper Supervisor Relationship Specialty Start Date End Date [id number], Need To Check ` PCP - Primary Care Physician 02/04/07 Rose Marie Mcintosh CNM [address] [place] [address] PCP - General Nurse Practitioner 01/16/22 Roberto Aldridge MD [address] [place] [address] Family Practice 03/03/19
--- OUTSIDE RECORDS SUMMARY | 2024-07-23 22:40 | XMS_ITS ---
Author Organization Unknown Address [address] [place] [phone] Phone Care Team Providers Care Gas Station Supervisor Name Role Phone SIMEON OLIVEIRA Attending Unavailable [...] CVX Tdap 10/09/2014 Completed 115 CVX Novel [id number], preservative-free 01/07/2009 Completed 126 CVX Novel [id number]-H1X2-69 12/10/2008 Completed 127 CVX Influenza, split virus, [...] em Smoking History Never smoker (Never Smoked) 093835054 SNOMED CT Sex Female Vital Signs Vital Sign Value Unit Dickson Value Dickson Unit Date/Time Recent/Initial? Code Code System Body Mass Index 25.12 kg/m2 02/05/2023 14:27 Initial 12758 -5 LOINC Systolic Blood Pressure 102 mm[Hg] 02/05/2023 14:27 Initial 8480- 6 LOINC Diastolic Blood Pressure 52 mm[Hg] 02/05/2023 14:27 Initial 8462- 4 LOINC Body Surface Area 1.67 m2 02/05/2023 14:27 Initial 3140- 1 LOINC Height 159.004 0 cm 62.60 in 02/05/2023 14:27 Initial 8302- 2 LOINC O2 Saturation 98 % 2022 14:27 Initial 90587 -5 LOINC Pulse 70.0 /min 02/05/2023 14:27 Initial 8867- 4 LOINC Respiration 16 /min 02/06/20 14:27 Initial 9279- 1 LOINC Temperature 36.6 Adrianne 97.9 F 02/06/20 14:27 Initial 8310- 5 LOINC Weight 63.50 kg 140.00 lbs 02/05/2023 14:27 Initial 44365 -7 LOINC Medications Medication Start Date End Date Route Frequency Dose Code Code System Medication Instructions Home Meds Propranolol HCl 20MG Oral Tablet 03/13/2019 02/05/2023 ORAL NEEDED DAILY 298463 RxNorm TAKE 1-2 TABLET ORAL NEEDED DAILY ALPRAZolam 0.25MG Oral Tablet 05/03/2019 02/05/2023 ORAL NEEDED TWICE A DAY 1 TABLET 436913 RxNorm TAKE 1 TABLET ORAL NEEDED TWICE A DAY Felecia 3MG-0.03MG Oral Tablet 02/05/2023 Unknown ORAL EVERY DAY 1 TABLET 561864 RxNorm TAKE 1 TABLET ORAL EVERY DAY [...] Code Sys tem Adult health examination 02/05/2023 [id number] [facility] MED-[facility] Personal Care Team Section Performer Name Performer Role Active Date Inactive Da flores
--- OUTSIDE RECORDS SUMMARY | 2024-07-23 22:40 | XMS_ITS ---
Author Organization Unknown Address [address] [place] [phone] Phone Care Team Providers Care Physical Design Engineer Name Role Phone SIMEON OLIVEIRA Attending Unavailable [...] CVX Tdap 10/09/2014 Completed 115 CVX Novel [id number]-R2P0-13, preservative-free 01/07/2009 Completed 126 CVX Novel [id number]-N5V3-87 12/10/2008 Completed 127 CVX Influenza, split virus, [...] URINE - Collect Da te/Time: 02/05/2023 15:40 [facility] ID: [id number] [address] [place] [address], [phone] LOINC: 2112-1 Test Value Unit Reference Range Code Code System Flag PREG URINE NEGATIVE 77242-7 LOINC Social History Type Status Start Date End Date Code Code Syst em Smoking History Never smoker (Never Smoked) 887668731 SNOMED CT Sex Female Medications Medication Start Date End Date Route Frequency Dose Code Code System Medication Instructions Home Meds Propranolol HCl 20MG Oral Tablet 03/13/2019 02/05/2023 ORAL NEEDED DAILY 018179 RxNorm TAKE 1-2 TABLET ORAL NEEDED DAILY ALPRAZolam 0.25MG Oral Tablet 05/03/2019 02/05/2023 ORAL NEEDED TWICE A DAY 1 TABLET 571701 RxNorm TAKE 1 TABLET ORAL NEEDED TWICE A DAY Felecia 3MG-0.03MG Oral Tablet 02/05/2023 Unknown ORAL EVERY DAY 1 TABLET 455116 RxNorm TAKE 1 TABLET ORAL EVERY DAY [...]
--- OUTSIDE RECORDS SUMMARY | 2024-07-23 22:40 | XMS_ITS | Encounter Summary ---
Author Organization [facility] enter Address [address] [place] [address] Phone Care Team Providers Care Speech Therapist Technician Name Role Phone Roberto Aldridge MD Unavailable [phone], Need To Check Unavailable UnavailKiersten Sawyer Primary Care Provider [phone] Rose Marie Mcintosh [facility] Primary Care Provider Reason for Visit * Reason Comments Medication Refill Encounter Details Date Type Department Care Team (Late st Contact Info) Description 05/18/2020 Refill [facility] - Urology [address] [place] [address] Keiko Tobar, PASubhaC [address] [place] [address] Social History Tobacco Use Types Packs/Day Years [...] as of this encounter Plan of Treatment Upcoming Encounters Date Type Department Care Team (Late st Contact Info) Description 08/04/2024 10:45 AM CDT Appointment [facility] - Family Practice [address] [place] [address] Rose Marie Mcintosh CNM [address] [place] [address] documented as of this encounter Visit Diagnoses Diagnosis Recurrent UTI Urinary tract infection, site not specified documented in this encounter Additional Health Concerns Assessment Noted Time PHQ-9 Depression Total Score: 11 020 2:09 PM CDT PHQ-2 Depression Total Score: 3 04/30/19 20 2:09 PM CDT documented as of this encounter Care Teams Speech Therapist Technician Relationship Specialty Start Date End Date [id number], Need To Check ` PCP - Primary Care Physician 02/04/07 Kiersten Gomez [address] [place] [address] PCP - General 04/30/19 01/15/22 Rose Marie Mcintosh CNM [address] [place] [address] PCP - General Nurse Practitioner 01/16/22 Roberto Aldridge MD [address] [place] [address] Family Practice 03/03/19 documented as of this encounter
--- OUTSIDE RECORDS SUMMARY | 2024-07-23 22:40 | XMS_ITS | Encounter Summary ---
Author Organization [facility] enter Address [address] [place] [address] Phone Care Team Providers Care Automotive Quality Engineer Name Role Phone Roberto Aldridge MD Primary Care Provider [phone], Need To Check Primary Care Provider Unav ailable Roberto Aldridge MD Primary Care Provider [phone] Roberto Aldridge MD Unavailable [phone], Need To Check Unavailable Kiersten Villalobos Primary Care Provider [phone] Rose Marie Mcintosh [facility] Primary Care Provider Reason for Visit * Reason Comments Medication Refill Encounter Details Date Type Department Care Team (Late st Contact Info) Description 12/23/2018 Refill [facility] - Family Practice [address] [place] [address] Jill Alicea PA-C [address] [place] [address] Social History Tobacco Use Types Packs/Day Years [...] They will call to make an appt. [facility] D[facility] * Telephone Encounter - Jill Alicea PA-C - 12/23/2018 2:27 PM CST Please call Roslyn. She is given 3months. Long over due for px appt. Needs appt before more refills will be given. Thx. D DANCE HALL * Telephone Encounter - Yin Izquierdo RN - 12/23/2018 2:06 PM CST Situation: Rx refill request from [facility] pharmacy Background: Patient was last seen on 09/20/17. Rx was last filled on 10/05/18 Assessment: Patient was instructed to make follow up appointment for further refills, has no upcoming appointments. Recommendation: See pending rx D DANCE HALL documented in this encounter Plan of Treatment Upcoming Encounters Date Type Department Care Team (Late st Contact Info) Description 08/04/2024 10:45 AM CDT Appointment [facility] - Family Practice [address] [place] [address] Rose Marie Mcintosh [facility] [address] [place] [address] documented as of this encounter Visit Diagnoses Diagnosis Encounter for surveillance of contraceptive pills Surveillance of previously prescribed contraceptive pill documented in this encounter Additional Health Concerns Infection Onset Date Last Indicated Resolved Time Rule Out COVID-19 12/25/2019 12/25/2019 12/28/2019 3:49 PM [facility] documented as of this encounter Care Teams Automotive Quality Engineer Relationship Specialty Start Date End Date Roberto Aldridge MD [address] [place] [address] PCP - General Family Practice 11/10/16 03/02/19 [id number], Need To Check ` PCP - General 03/03/19 03/04/19 Roberto Aldridge MD [address] [place] [address] PCP - General Family Practice 03/05/19 04/29/19 [id number], Need To Check ` PCP - Primary Care Physician 02/04/07 Kiersten Gomez [address] [place] [address] PCP - General 04/30/19 01/15/22 Rose Marie Mcintosh, [facility] [address] [place] [address] PCP - General Nurse Practitioner 01/16/22 Roberto Aldridge MD [address] [place] [address] Family Practice 03/03/19 documented as of this encounter
--- OUTSIDE RECORDS SUMMARY | 2024-07-23 22:40 | XMS_ITS | Encounter Summary ---
Author Organization [facility] enter Address [address] [place] [address] Phone Care Team Providers Care Boot Maker Name Role Phone Roberto Aldridge MD Unavailable [phone], Need To Check Unavailable Unavailabl Kiersten Burton Primary Care Provider [phone] Rose Marie Mcintosh [facility] Primary Care Provider Encounter Details Date Type Department Care Team (Late st Contact Info) Description 10/18/2021 Telephone [facility] Pod[facility]ry [facility] [address] [place], [place] [phone] eKvan Bush, DPM [address] [place] [address] Social History Tobacco Use Types Packs/Day Years [...] Info) Description 08/04/2024 10:45 AM CDT Appointment [facility] Family Practice [address] [place] [address] Rose Marie Mcintosh CNM [address] [place] [address] documented as of this encounter Visit Diagnoses Not on filedocumented in this encounter Additional Health Concerns Assessment Noted Time PHQ-9 Depression Total Score: 11 020 2:09 PM CDT A fall risk assessment has been complete d for the patient 10/18/2021 1:23 PM CDT PHQ-2 Depression Total Score: 3 04/30/19 20 2:09 PM CDT documented as of this encounter Care Teams Boot Maker Relationship Specialty Start Date End Date [id number], Need To Check ` PCP - Primary Care Physician 02/04/07 Kiersten Gomez [address] [place] [address] PCP - General 04/30/19 01/15/22 Rose Marie Mcintosh CNM [address] [place] [address] PCP - General Nurse Practitioner 01/16/22 Roberto Aldridge MD [address] [place] [address] Family Practice 03/03/19 documented as of this encounter
--- OUTSIDE RECORDS SUMMARY | 2024-07-23 22:41 | XMS_ITS | Clinical Summary ---
Author Organization [facility] and [facility] Address [facility] [place] [address] Care Team Providers Care Community Board Member Name Role Phone PcpBronson MD Primary Care Provider [phone] Source Comments If you need additional information that is not available on Care Everywhere, please contact our Medical Records Department during business hours (Sunday - Sunday, 8 am - 5 pm) at . During nonbusiness hours, please contact our Trauma and Emergency Center at .[facility] and [facility] Allergies Active Allergy Reactions Criticality Noted Date Comments Amoxicillin-Pot Clavulanate Rash 07/21/19 15 Ciprofloxacin Other Low 08/26/2021 Potassium Clavulanate Unknown 02/18/2016 Medications * Medications may not be up to date as of this document. Always verify current medications with the patient. drospirenone-et hinyl estradiol 3-20 3-0.02 mg tablet Take 1 Tablet by mouth daily 84 Tablet 3 2 Active clindamycin (CLEOCIN T) 1 % gel Apply 1 Application to skin 2 times daily 60 g 3 2 Active tretinoin (RETIN-A) 0.01 % gel Apply 1 Application to skin every evening 45 g 3 2 Active Active Problems Problem Noted Date Diagnosed [...] igament of right elbow 05/12/2015 08/05/2019 Immunizations Immunization Administration Dates Next Due DTaP 10/02/2007, 4,09/25/2002,06/17,04/21/2002 [...] Concussion fall 2013 Concussion 07/18/2014 Exercise-induced asthma (*) Environmental allergies Neurocardiogenic syncope 08/05/2019 Sprain of [...] and Family Not on file 10/24/2021 Attends [employer] Not on file 10/24 Active Member [...] care, and heating? Not very hard 10/24/2021 [facility] - Occupational Stress Questionnaire Answer Date Recorded [...] No 10/24/2021 Housing Stability Vital Sign Answer Ekvin e Recorded In the last 12 months, [...] place to sleep or slept in a skilled nursing (including now)? No 10/24/2021 Depression ([facility]) Answer Date Recorded PHQ2 Not on file 10/09/2014 PHQ4 Not on file 10/09/2014 PHQ9 Score 0 10/09/2014 Suicide Risk Alert Not on file 10/09/2014 Comments No Sex and Gender Information Value Date Recorded Sex Assigned at Not on file Legal Sex Female 7:55 AM PNEUMATIC TUBE FITTER Gender Identity Not on file Sexual Orientation Not on file Obstetrics History Last Filed Vital Signs Vital Sign Reading Time Taken Comments Blood Pressure 102/62 10/28/2021 12:50 PM CDT Pulse 80 10/28/2021 12:50 PM CDT Temperature 35.6 C (96 F) 02/04/2020 9:36 AM PNEUMATIC TUBE FITTER Respiratory Rate - - Oxygen Saturation - - Inhaled Oxygen Concentration - - Weight 67.9 kg (149 lb 11.2 oz) 022 12:50 PM CDT Height 158 cm (5' 2.21) 10/28/2021 12: 50 PM CDT Body Mass Index 27.2 10/28/2021 12:50 PM CDT Plan of Treatment Health Maintenance Due Date Last Done Comments DIABETES SCREENING 2001 Meningococcal B Vaccine (2 of 2 - Bexsero SCDM 2-dose series) 2017 07/28/2015 CERVICAL CANCER SCREENING 12/14/2019 LIPID SCREEN 12/14/2019 CHLAMYDIA SCREEN 10/07/2022 10/07/2021, 12/12/2019 TSH 10/07/2022 10/07/2021, 04/20, 01/19/2021, Additional history exists DEPRESSION/ANXIETY PHQ4 10/28/2022 10/29/19 22, 10/28/2021, 08/06/2020, Additional history exists WELLNESS VISIT 10/28/2022 10/28/2021, 07/20, 08/05/2019, Additional history exists COVID-19 Vaccine ( season) 2023 02/16/2021, 06/06/2020, 05/12/2020 DTaP/Tdap/Td Vaccine (7 - Td or Tdap) 10/09/2024 10/09/2014, 10/02/2007, 07/22/2003, Additional history exists Influenza Vaccine (Season Ended) 2024 12/08/2020, 11/21/2019, 11/19/2019, Additional history exists RSV Vaccines (1 - 1-dose 75+ series) 2076 POLIO (IPV) Vaccine Completed 10/02/2007, 09/25/2002, 06/17/2002, Additional history exists Hepatitis B Vaccine Completed 01/29/2009, 01/29/2009, 01/13/2008, Additional history exists PERTUSSIS Completed 10/09/2014 HPV Vaccine Completed 09/20/2017, 09/19, 05/24/2016, Additional history exists Pneumococcal Vaccine: Pediatrics (0 to 5 Years) and At-Risk Patients (6 to 49 Years) Aged Out No longer eligible based on [...] RNA Negative Negative 10/10/2021 12:24 PM CDT [facility] Comment:This is an appended report. These results have been appended to a previously preliminary verified report. NEIS. GONORRHOEAE RNA Negative Negative 10/10/2021 12:24 PM CDT [facility] Comment:This is an appended report. These results have been appended to a previously preliminary verified report. TRICHOMONAS RNA Negative Negative 12:24 PM CDT [facility] Swab VAGINAL STRUCTURE / Unknown 10/07/2021 11:10 AM CDT 10/07/2021 11:13 AM CDT Narrative [facility] - 10/10/2021 12:24 PM CDT C.trachomatis, Neis. gonorrhoeae & Trichomonas vaginalis testing by [facility]. Kiersten L Abbas DO MICROBIOLOGY - GENERAL ORDE RABLES Final Result [facility] [address] [place] [address] * LAB TSH (10/07/2021 11:02 AM CDT) TSH 4.81 0.40 - 5.50 uU/mL 10/07/2021 8:38 PM CDT [facility] Blood BLOOD SPECIMEN / Unknown Venipuncture / Unknown 10/07/2021 11:02 AM CDT 10/07/2021 11:02 AM CDT Narrative [facility] - 10/07/2021 8:38 PM CDT Reference Range During : First Trimester: 0.10 to 2.50 uU/mL Second Trimester: 0.20 to 3.00 uU/mL Third Trimester: 0.30 to 3.00 uU/mL Kiersten Gomez DO CHEMISTRY ORDERABLES Final Result Performing Organization Address City/[facility]/ZIP Co de Phone Number [facility] [address] [place] [phone] from Last 3 Months or Most Recently Relevant to Health Maintenance Insurance HMO Care Teams Community Board Member Relationship Specialty Start Date End Date Bronson Henson MD [address] [address] PCP - General 12/23/21
--- OUTSIDE RECORDS SUMMARY | 2024-07-23 22:41 | XMS_ITS | Encounter Summary ---
Author Organization [facility] enter Address [address] [place] [phone] Phone Care Team Providers Care Home Care Scheduler Name Role Phone Rboerto Aldridge MD Primary Care Provider [phone], Need To Check Primary Care Provider Unav ailable Roberto Aldridge MD Primary Care Provider + [phone] Roberto Aldridge MD Unavailable [phone], Need To Check Unavailable Kiersten Villalobos Primary Care Provider [phone] Rose Marie Mcintosh [facility] Primary Care Provider Encounter Details Date Type Department Care Team (Late st Contact Info) Description 10/10/2017 Telephone [facility] [address] [place] [address] Social History Tobacco Use Types Packs/Day Years Used Date Smoking Tobacco: Never Smokeless Tobacco: Never Comments No Sex and Gender Information Value Date Recorded Sex Assigned at Not on file Legal Sex Female 2:14 AM CDT Gender Identity Not on file Sexual Orientation Not on file documented as of this encounter Miscellaneous Notes * Telephone Encounter - Emma Walton - 10/16/2017 1:28 PM CDT I called Roslyn's mom back and then transferred to JUDITH Reina to give results. Emma Walton * Telephone [...] Patient's mother called in regarding echo on 8.. Would like to somehow get the appointment later in the day. I stated we had no openings. She would like to talk to Emma regarding this matter. Thank you. documented in this encounter Plan of Treatment Upcoming Encounters Date Type Department Care Team (Late st Contact Info) Description 08/04/2024 10:45 AM CDT Appointment [facility] [address] [place] [address] Rose Marie Mcintosh, [facility] [address] [place] [address] documented as of this encounter Visit Diagnoses Not on filedocumented in this encounter Additional Health Concerns Infection Onset Date Last Indicated Resolved Time Rule Out COVID-19 12/25/2019 12/25/2019 12/28/2019 3:49 PM CORPORATE WELLNESS COORDINATOR documented as of this encounter Care Teams Home Care Scheduler Relationship Specialty Start Date End Date Roberto Aldridge MD [address] [place] [id number] PCP - General Family Practice 11/10/16 03/02/19 [id number], Need To Check ` PCP - General 03/03/19 03/04/19 Roberto Aldridge MD [address] [place] [phone] PCP - General Family Practice 03/05/19 04/29/19 [id number], Need To Check ` PCP - Primary Care Physician 02/04/07 Kiersten Gomez [address] [place] [address] PCP - General 04/30/19 01/15/22 Rose Marie Mcintosh CN [address] [place] [address] PCP - General Nurse Practitioner 01/16/22 Roberto Aldridge MD [address] [place] [phone] Family Practice 03/03/19 documented as of this encounter
--- OUTSIDE RECORDS SUMMARY | 2024-07-23 22:41 | XMS_ITS | Clinical Summary ---
Author Organization [facility] Address [address] [place] [id number] Care Team Providers Care Museum Registrar Name Role Phone Pcp, No Primary Care Provider Unavailabl e Allergies Active Allergy Reactions Criticality Noted Date Comments Penicillins Rash,*Unknown - Childhood Rxn 12/22 Potassium Clavulanate *Unknown 02/18/2016 Medications Torrance-Linyah 0.25-35 mg-mcg tablet Take 1 Tablet by mouth once daily. Active Active Problems No known active problems Immunizations Immunization Administration Dates Next Due COVID-19 vaccine (SquaredOut NTech 30mcg/0.3mL) PF, MDV 02/16/2021 DTaP 10/02/2007, 4,09/25/2002,06/17,04/21/2002 Dtap Unspecified Formulation 10/02/2007, 07/22/2003,09/25/2002,06/17,04/21/2002 HIB HbOC (HibTITER) 07/22/2003,06/17/2002,2002 HIB PRP-T (ActHIB,Hiberix) 09/25/2002 HPV 9 (Gardasil 9) 09/20/2017, 7,05/24/2016,07/27 Hepatitis A (Peds) 05/24/2016,07/28/2015 Hepatitis A (Peds),Unspecified 05/24/2016,2015 Hepatitis A, Unspecified 05/24/2016 Hepatitis B (Peds) 01/29/2009,01/13/2008,10/03/2 008 Hepatitis B, Unspecified 01/29/2009,01/13/2008,1 Hib Conjugate, [...] Paying Living Expenses Not on file 02/19/2021 Comments No Sex and Gender Information Value Date Recorded Sex Assigned at Not on file Legal Sex Female 4:22 PM CDT Gender Identity Not on file Sexual Orientation Not on file Obstetrics History Last Filed Vital Signs Vital Sign Reading Time Taken Comments Blood Pressure 108/69 11/16/2022 3:20 PM CDT Pulse 77 11/16/2022 3:20 PM CDT Temperature 36.8 C (98.3 F) 12/23/2020 3:59 PM CDT Respiratory Rate - - Oxygen Saturation 97% [...] 2023 05/23/2023, 12/12/2021, 02/16/2021, Additional history exists BMI (ht and wt on same day) for age 18+ 11/17/2023 11/16/2022, 12/23/2020, 12/08/2020 Depression screening for age 12+ 11/17/2023 11/16/2022 Tetanus booster 10/09/2024 10/09/2014 Influenza Vaccine (Season Ended) 2024 11/16/2022, 12/08/2020, 11/19/2019, Additional history exists Hepatitis B series for 19+ Completed 01/29, 01/29/2009, 01/13/2008, Additional history exists Tdap Completed 10/09/2014 HPV series for age 9-26 Completed 09/21/19 18, 10/06/2016, 05/24/2016, Additional history exists Pneumococcal series for age 6-49 Aged Out No longer eligible based on patient's age to complete this topic Insurance OF [place]-ITS Care Teams Museum Registrar Relationship Specialty Start Date End Date Pcp, No . PCP - General 12/08/20
[2024-07-23 22:57] LABS: Appearance Urine Clear (Clear); Bilirubin Urine Negative (Negative); Blood Urine Negative (Negative); Color Urine Orange (Yellow); Glucose Urine Trace (Negative); Ketones Urine Negative (Negative); Leukocyte Esterase Urine Negative (Negative); Nitrite Urine Positive (Negative); Protein Urine Negative (Negative); Specific Gravity Urine <= 1.005 (1.000-1.030); pH Urine 6.5 (5.0-8.5)
[2024-07-23 23:05] LABS: Amorphous Sediment Urine Few; RBC Urine 0-2 (0-2); Squamous Epithelial Cell Urine Few (None-Few); WBC Urine 0-2 (0-5)
--- NOTE | 2024-07-23 23:43 | ED.GENADULT ---
HPI - General Adult General Chief complaint: Urogenital Problems, Female Stated complaint: possible UTI Time Seen by Provider: 07/23/24 23:43 History of Present Illness HPI narrative: Patient complaining of burning when urinating, and urgency to urinate starting this evening. Patient also complaining of headache, nausea and dizziness. 23-year-old young woman presenting to the emergency department accompanied by to young woman. Concern of dysuria and urgency. Feels generally unwell with some nausea and headache as well. No fever. No hematuria noted. No concern of STI. Has been treating with azo. It has been a while since last urinary tract infection. Has been drinking a lot a water Related Data Home Medications ?Medication ?Instructions ?Recorded ?Confirmed norgestimate 0.25 mg-ethinyl 1 tab PO DAILY 02/20/23 07/23/24 estradiol 0.035 mg tablet (Mountrail-Linyah) levothyroxine 25 mcg capsule 25 mcg PO QDAY 12/10/23 07/23/24 Allergies Allergy/AdvReac Type Severity Reaction Status Date / Time ciprofloxacin Allergy Mild Hives Verified 07/23/24 22:45 Penicillins Allergy Mild Hives Verified 07/23/24 22:45 Review of Systems Status of ROS: Reports: 6 or more systems reviewed and unremarkable except as noted in History and below PFSH [facility] Medical History No significant past medical history Surgical History No significant past surgical history Social History Smoking Status: Never smoker Second hand tobacco smoke exposure: No How often do you have a drink containing alcohol: never How often do you have six or more drinks on one occasion: Never AUDIT-C Alcohol total score: 0 Non-prescribed substance use: denies use Exam Narrative: Exam Narrative: Pleasant. NAD but looks like she does not feel very good. Skin is warm and dry. Slightly uncomfortable to palpation suprapubic abdomen otherwise soft. No flank pain. Breathing easily. Heart in regular rate and rhythm. Extremities are well perfused. Const: Vital Signs, click to edit/add: Vital Signs - 24 hr 07/23/24 22:39 Temperature 98.5 F Pulse Rate [Pulse Oximeter] 73 Respiratory Rate 15 Blood Pressure [Le ft Upper Arm] 127/65 Pulse Oximetry 98 Oxygen Delivery Me thod Room Air Documenting provider has reviewed patient's vital signs: yes Course Vital Signs Vital signs: Initial Vital Signs Temperature 98.5 F 07/23/24 22:39 Temperature Source Temporal Artery Scan 07/23/24 22:39 Pulse Rate 73 07/23/24 22:39 Respiratory Rate 15 07/23/24 22:39 Blood Pressure 127/65 07/23/24 22:39 Blood Pressure Mean 85 07/23/24 22:39 Pulse Oximetry 98 07/23/24 22:39 Oxygen Delivery Method Room Air 07/23/24 22:39 Vital Signs Temperature 98.5 F 07/23/24 22:39 Pulse Rate 73 07/23/24 22:39 Respiratory Rate 15 07/23/24 22:39 Blood Pressure 127/65 07/23/24 22:39 Pulse Oximetry 98 07/23/24 22:39 Oxygen Delivery Method Room Air 07/23/24 22:39 Temperature 98.5 F 07/23/24 22:39 Pulse Rate 73 07/23/24 22:39 Respiratory Rate 15 07/23/24 22:39 Blood Pressure 127/65 07/23/24 22:39 Pulse Oximetry 98 07/23/24 22:39 Oxygen Delivery Method Room Air 07/23/24 22:39 Medical Decision Making MDM Narrative Medical decision making narrative: Symptoms do seem consistent with cystitis/urethritis. She does not feel that will is at risk for STI and does not want testing. Urinalysis returns positive for nitrite but otherwise relatively unremarkable. Perhaps she has hydrated well enough to clear a lot of this. With nitrite and symptoms it does really appear that she has a cystitis/urethritis at a minimum. I did offer treatment with this in mind. Urine culture would be pending. See patient discharge plan for further discussion Continue to focus on hydration, for now maybe avoiding sweetened drinks or juices. Can continue with your phenazopyridine up to 200 mg per dose. Prescribing cephalexin from [facility]. Your urine will be cultured and will call you if changes might need to be made. Lab Data Lab results reviewed: Yes I reviewed the patient's lab results Labs: Lab Results 07/23/24 Range/Units 22:50 Urine Color Cass A (Yellow) Urine Appearance Clear (Clear) Urine pH 6.5 (5.0-8.5) Ur Specific Limestone <= 1.005 (1.000-1.030) Urine Protein Negative (Negative) Urine Glucose (UA) Trace A (Negative) Urine Ketones Negative (Negative) Urine Blood Negative (Negative) Urine Nitrite Positive A (Negative) Urine Bilirubin Negative (Negative) Urine Urobilinogen 1.0 (0.2-1.0) Ur Leukocyte Esterase Negative (Negative) Urine RBC 0-2 (0-2) Urine WBC 0-2 (0-5) Ur Squamous Epith Cells Few (None-Few) Amorphous Sediment Few A (None) Urine Bacteria None (None) Discharge Plan Discharge Clinical Impression: Cystitis Patient Disposition: Home w/ Parent or Adult Condition: Stable Additional Instructions: Continue to focus on hydration, for now maybe avoiding sweetened drinks or juices. Can continue with your phenazopyridine up to 200 mg per dose. Prescribing cephalexin from [facility]. Your urine will be cultured and will call you if changes might need to be made. Prescriptions: No Action levothyroxine 25 mcg capsule 25 mcg PO QDAY norgestimate-ethinyl estradiol [Mountrail-Linyah] 0.25-35 mg-mcg tablet 1 tab PO DAILY Follow Up/Referrals: Provider,Not a Local [Primary Care Provider, Family Practice] Stand Alone Forms: [employer] Info Instructions
--- OUTSIDE RECORDS SUMMARY | 2024-07-24 00:06 | XMS_ITS ---
Author Organization Unknown Address [address] [place] [phone] Phone Care Team Providers Care Global Regulatory Lead Name Role Phone SIMEON OLIVEIRA Attending Unavailable [...] CVX Tdap 10/09/2014 Completed 115 CVX Novel [id number], preservative-free 01/07/2009 Completed 126 CVX Novel [id number] 12/10/2008 Completed 127 CVX Influenza, split virus, [...] em Smoking History Never smoker (Never Smoked) [id number] SNOMED CT Sex Female Vital Signs Vital Sign Value Unit Stark Value Stark Unit Date/Time Recent/Initial? Code Code System Body Mass Index 25.12 kg/m2 02/05/2023 14:27 Initial 04541 -5 LOINC Systolic Blood Pressure 102 mm[Hg] 02/05/2023 14:27 Initial 8480- 6 LOINC Diastolic Blood Pressure 52 mm[Hg] 02/05/2023 14:27 Initial 8462- 4 LOINC Body Surface Area 1.67 m2 02/05/2023 14:27 Initial 3140- 1 LOINC Height 159.004 0 cm 62.60 in 02/05/2023 14:27 Initial 8302- 2 LOINC O2 Saturation 98 % 2022 14:27 Initial 08383 -5 LOINC Pulse 70.0 /min 02/05/2023 14:27 Initial 8867- 4 LOINC Respiration 16 /min 02/06/20 14:27 Initial 9279- 1 LOINC Temperature 36.6 Adrianne 97.9 F 02/06/20 14:27 Initial 8310- 5 LOINC Weight 63.50 kg 140.00 lbs 02/05/2023 14:27 Initial 19817 -7 LOINC Medications Medication Start Date End Date Route Frequency Dose Code Code System Medication Instructions Home Meds Propranolol HCl 20MG Oral Tablet 03/13/2019 02/05/2023 ORAL NEEDED DAILY 205409 RxNorm TAKE 1-2 TABLET ORAL NEEDED DAILY ALPRAZolam 0.25MG Oral Tablet 05/03/2019 02/05/2023 ORAL NEEDED TWICE A DAY 1 TABLET 520505 RxNorm TAKE 1 TABLET ORAL NEEDED TWICE A DAY Felecia 3MG-0.03MG Oral Tablet 02/05/2023 Unknown ORAL EVERY DAY 1 TABLET 526983 RxNorm TAKE 1 TABLET ORAL EVERY DAY [...] Code Sys tem Adult health examination 02/05/2023 [id number] [facility] Personal Care Team Section Performer Name Performer Role Active Date Inactive Da flores
--- OUTSIDE RECORDS SUMMARY | 2024-07-24 00:06 | XMS_ITS ---
Author Organization Unknown Address [address] [place] [phone] Phone Care Team Providers Care Street Light Wirer Name Role Phone SIMEON OLIVEIRA Attending Unavailable [...] CVX Tdap 10/09/2014 Completed 115 CVX Novel [id number], preservative-free 01/07/2009 Completed 126 CVX Novel [id number] 12/10/2008 Completed 127 CVX Influenza, split virus, [...] URINE - Collect Da te/Time: 02/05/2023 15:40 [facility] ID: [id number] [address] [place] [address], [phone] LOINC: 2112-1 Test Value Unit Reference Range Code Code System Flag PREG URINE NEGATIVE 92513-1 LOINC Social History Type Status Start Date End Date Code Code Syst em Smoking History Never smoker (Never Smoked) 071768420 SNOMED CT Sex Female Medications Medication Start Date End Date Route Frequency Dose Code Code System Medication Instructions Home Meds Propranolol HCl 20MG Oral Tablet 03/13/2019 02/05/2023 ORAL NEEDED DAILY 029965 RxNorm TAKE 1-2 TABLET ORAL NEEDED DAILY ALPRAZolam 0.25MG Oral Tablet 05/03/2019 02/05/2023 ORAL NEEDED TWICE A DAY 1 TABLET 515623 RxNorm TAKE 1 TABLET ORAL NEEDED TWICE A DAY Felecia 3MG-0.03MG Oral Tablet 02/05/2023 Unknown ORAL EVERY DAY 1 TABLET 502145 RxNorm TAKE 1 TABLET ORAL EVERY DAY [...]
--- OUTSIDE RECORDS SUMMARY | 2024-07-24 00:07 | XMS_ITS | Encounter Summary ---
Author Organization [facility] enter Address [address] [place] [address] Phone Care Team Providers Care Goodyear Welter Name Role Phone Roberto Aldridge MD Primary Care Provider [phone], Need To Check Primary Care Provider Unav ailable Roberto Aldridge MD Primary Care Provider + [phone] Roberto Aldridge MD Unavailable [phone], Need To Check Unavailable Kiersten Villalobos Primary Care Provider [phone] Rose Marie Mcintosh CNM Primary Care Provider Encounter Details Date Type Department Care Team (Late st Contact Info) Description 12/24/2017 Telephone [facility] [address] [place], [place] [id number] Rose Marie Mcintosh CNM [address] [place] [address] Social History Tobacco Use Types Packs/Day Years [...] Notes * Telephone Encounter - Rose Marie Mcintsoh CNM - 12/24/2017 1:25 PM TECHNOLOGY INTERNSHIP Yesterday I spoke with Roslyn and she [...] in agreement with this plan of care. NOLOGY INTERNSHIP documented in this encounter Plan of Treatment Upcoming Encounters Date Type Department Care Team (Late st Contact Info) Description 08/04/2024 10:45 AM CDT Appointment [facility] [address] [place] [address] Rose Marie Mcintosh CNM [address] [place] [address] documented as of this encounter Results * [facility] URINALYSIS WITH REFLEX TO MICROSCOPIC (12/26/2017 4:45 PM TECHNOLOGY INTERNSHIP) Color - Urine - [facility] Yellow 12/26/2017 4:53 PM TECHNOLOGY INTERNSHIP [facility] Clarity - Urine - [facility] Clear 12/26/2017 4:53 PM TECHNOLOGY INTERNSHIP [facility] Bilirubin - Urine - [facility] Negative Negative 12/26/2017 4:53 PM [facility] Ketones - Urine - [facility] Negative Negative mg/dL 12/26/2017 4:53 PM [facility] Specific [place] - Urine - [facility] 1.025 1.003 - 1.030 12/26/2017 4:53 PM [facility] Blood - Urine - [facility] Negative Negative 12/26/2017 4:53 PM [facility] pH - Urine - [facility] 7.0 4.5 - 8.0 12/27/19 18 4:53 PM [facility] Protein - Urine - [facility] Negative <30 mg/dL 12/26/2017 4:53 PM [facility] Urobilinogen - Urine - [facility] 0.2 <=1.0 E.U./dL 12/26/2017 4:53 PM [facility] Nitrite - Urine - [facility] Negative Negative 12/26/2017 4:53 PM [facility] Leukocyte Esterase - Urine - [facility] Negative Negative 12/26/2017 4:53 PM [facility] Glucose - Urine - [facility] Negative Negative 12/26/2017 4:53 PM [facility] Microscopic needed? - Urine - [facility] No 12/26/2017 4:53 PM [facility] Urine specimen (specimen) 12/26/2017 4:45 PM TECHNOLOGY INTERNSHIP 12/26/2017 4:45 PM TECHNOLOGY INTERNSHIP us Rose Marie Esteban CNM [facility] LAB Final Result [facility] [address] [place] [address], [place] [phone] documented in this encounter Visit Diagnoses Diagnosis Dysuria- Primary documented in this encounter Additional Health Concerns Infection Onset Date Last Indicated Resolved Time Rule Out COVID-19 12/25/2019 12/25/2019 12/28/2019 3:49 PM TECHNOLOGY INTERNSHIP documented as of this encounter Care Teams Goodyear Welter Relationship Specialty Start Date End Date Roberto Aldridge MD [address] [place] [address]226 PCP - General Family Practice 11/10/16 03/02/19 [id number], Need To Check ` PCP - General 03/03/19 03/04/19 Roberto Aldridge MD [address] [place] [address] 30037 PCP - General Family Practice 03/05/19 04/29/19 [id number], Need To Check ` PCP - Primary Care Physician 02/04/07 Kiersten Gomez [address] [place] [address] 78476 PCP - General 04/30/19 01/15/22 Rose Marie Mcintosh CN [address] [place] [address] 35065 PCP - General Nurse Practitioner 01/16/22 Roberto Aldridge MD [address] [place] [address]84 Family Practice 03/03/19 documented as of this encounter
--- OUTSIDE RECORDS SUMMARY | 2024-07-24 00:07 | XMS_ITS | Encounter Summary ---
Author Organization [facility] enter Address [address] [place] [address] Phone Care Team Providers Care Vegetable Picker Name Role Phone Roberto Aldridge MD Unavailable [phone], Need To Check Unavailable Unavailabl Kiersten Burton Primary Care Provider [phone] Rose Marie Mcintosh [facility] Primary Care Provider Encounter Details Date Type Department Care Team (Late st Contact Info) Description 01/11/2021 Telephone [facility] - Family Practice [address] [place], [place] [id number] Drew Butcher, PA-C [address] [place] [address] Social History Tobacco Use Types Packs/Day Years [...] RN - 01/11/2021 1:20 PM CST Err LE STITCH OPERATOR documented in this encounter Plan of Treatment Upcoming Encounters Date Type Department Care Team (Late st Contact Info) Description 08/04/2024 10:45 AM CDT Appointment [facility] [address] [place] [address] Rose Marie Mcintosh CNM [address] [place] [address] documented as of this encounter Visit Diagnoses Not on filedocumented in this encounter Additional Health Concerns Assessment Noted Time PHQ-9 Depression Total Score: 11 020 2:09 PM CDT PHQ-2 Depression Total Score: 3 04/30/19 20 2:09 PM CDT documented as of this encounter Care Teams Vegetable Picker Relationship Specialty Start Date End Date [id number], Need To Check ` PCP - Primary Care Physician 02/04/07 Kiersten Gomez [address] [place] [address]357 PCP - General 04/30/19 01/15/22 Rose Marie Mcintosh CNM [address] [place] [address] PCP - General Nurse Practitioner 01/16/22 Roberto Aldridge MD [address] [place] [phone] [facility] Practice 03/03/19 documented as of this encounter
--- OUTSIDE RECORDS SUMMARY | 2024-07-24 00:07 | XMS_ITS | Encounter Summary ---
Author Organization [facility] enter Address [address] [place] [address] Phone Care Team Providers Care Gambling Counsellor Name Role Phone Roberto Aldridge MD Primary Care Provider [phone], Need To Check Primary Care Provider Unav ailable Roberto Aldridge MD Primary Care Provider [phone] Roberto Aldridge MD Unavailable [phone], Need To Check Unavailable Kiersten Villalobos Primary Care Provider [phone] Rose Marie Mcintosh [facility] Primary Care Provider Reason for Visit * Reason Comments Medication Refill Encounter Details Date Type Department Care Team (Late st Contact Info) Description 10/04/2018 Refill [facility] - Family Practice [address] [place], [place] [phone] Adri Tejada PA-C 1 [place] [address] Social History Tobacco Use Types Packs/Day Years [...] stated that pt had a px at [facility] recently and will have note faxed for adri tejada's review. * Telephone Encounter - Adri Tejada PA-C - 10/05/2018 9:47 AM CDT She is given 3months. I last saw her Sep 2017. Is due for px/med refill appt. Please advise and help arrange. Thx. * Telephone Encounter - Yin Izquierdo RN - 10/04/2018 3:10 PM CDT Situation: Rx refill request from [facility] pharmacy for Felecia Background: Patient last seen for this on 09/20/17 Assessment: Rx was last filled on 08/02/18. Has no upcoming appointments Recommendation: See pending RX documented in this encounter Plan of Treatment Upcoming Encounters Date Type Department Care Team (Late st Contact Info) Description 08/04/2024 10:45 AM CDT Appointment [facility] - Family Practice [address] [place] [address] Rose Marie Mcintosh, [facility] [address] [place] [address] documented as of this encounter Visit Diagnoses Diagnosis Encounter for surveillance of contraceptive pills Surveillance of previously prescribed contraceptive pill documented in this encounter Additional Health Concerns Infection Onset Date Last Indicated Resolved Time Rule Out COVID-19 12/25/2019 12/25/2019 12/28/2019 3:49 PM POWER SUPPLY ENGINEER documented as of this encounter Care Teams Gambling Counsellor Relationship Specialty Start Date End Date Roberto Aldridge MD [address] [place] [address] PCP - General Family Practice 11/10/16 03/02/19 [id number], Need To Check ` PCP - General 03/03/19 03/04/19 Roberto Aldridge MD [address] [place] [address] 86271 PCP - General Family Practice 03/05/19 04/29/19 [id number], Need To Check ` PCP - Primary Care Physician 02/04/07 Kiersten Gomez [address] [place] [address] PCP - General 04/30/19 01/15/22 Rose Marie Mcintosh CN [address] [place] [address] 25512 PCP - General Nurse Practitioner 01/16/22 Roberto Aldridge MD [address] [place] [address] Family Practice 03/03/19 documented as of this encounter
--- OUTSIDE RECORDS SUMMARY | 2024-07-24 00:07 | XMS_ITS | Encounter Summary ---
Author Organization [facility] enter Address [address] [place] [address] Phone Care Team Providers Care Honing Machine Try Out Setter Name Role Phone Roberto Aldridge MD Unavailable [phone], Need To Check Unavailable Unavailabl Kiersten Burton Primary Care Provider [phone] Rose Marie Mcintosh [facility] Primary Care Provider Encounter Details Date Type Department Care Team (Late st Contact Info) Description 10/18/2021 Telephone [facility] - Podiatry Clinic [address] [place], [place] [phone] Kevan Bush, DPM [address] [place] [address] Social History Tobacco Use Types Packs/Day Years [...] Info) Description 08/04/2024 10:45 AM CDT Appointment [facility] [address] [place] [address] Rose Marie Mcintosh CNM [address] [place] [address] documented as of this encounter Visit Diagnoses Not on filedocumented in this encounter Additional Health Concerns Assessment Noted Time PHQ-9 Depression Total Score: 11 020 2:09 PM CDT A fall risk assessment has been complete d for the patient 10/18/2021 1:23 PM CDT PHQ-2 Depression Total Score: 3 04/30/19 20 2:09 PM CDT documented as of this encounter Care Teams Honing Machine Try Out Setter Relationship Specialty Start Date End Date [id number], Need To Check ` PCP - Primary Care Physician 02/04/07 Kiersten Gomez [address] [place] [address] PCP - General 04/30/19 01/15/22 Rose Marie Mcintosh CNM [address] [place] [address]42 PCP - General Nurse Practitioner 01/16/22 Roberto Aldridge MD [address] [place] [address] Family Practice 03/03/19 documented as of this encounter
--- OUTSIDE RECORDS SUMMARY | 2024-07-24 00:07 | XMS_ITS | Encounter Summary ---
Author Organization [facility] enter Address [address] [place] [address] Phone Care Team Providers Care Storage Consultant Name Role Phone Roberto Aldridge MD Primary Care Provider [phone], Need To Check Primary Care Provider Unav ailable Roberto Aldridge MD Primary Care Provider [phone] Roberto Aldridge MD Unavailable [phone], Need To Check Unavailable Kiersten Villalobos Primary Care Provider [phone] Rose Marie Mcintosh [facility] Primary Care Provider Reason for Visit * Reason Comments Medication Refill Encounter Details Date Type Department Care Team (Late st Contact Info) Description 12/23/2018 Refill [facility] - Family Practice [address] [place] [address] Jill Alicea PA-C 1 [place] [address] Social History Tobacco Use Types Packs/Day Years [...] They will call to make an appt. E OPERATOR * Telephone Encounter - Jill Alicea PA-C - 12/23/2018 2:27 PM CST Please call Roslyn. She is given 3months. Long over due for px appt. Needs appt before more refills will be given. Thx. E OPERATOR * Telephone Encounter - Yin Izquierdo RN - 12/23/2018 2:06 PM CST Situation: Rx refill request from [facility] Background: Patient was last seen on 09/20/17. Rx was last filled on 10/05/18 Assessment: Patient was instructed to make follow up appointment for further refills, has no upcoming appointments. Recommendation: See pending rx E OPERATOR documented in this encounter Plan of Treatment Upcoming Encounters Date Type Department Care Team (Late st Contact Info) Description 08/04/2024 10:45 AM CDT Appointment [facility] - Family Practice [address] [place] [address] Rose Marie Mcintosh [facility] [address] [place] [address] documented as of this encounter Visit Diagnoses Diagnosis Encounter for surveillance of contraceptive pills Surveillance of previously prescribed contraceptive pill documented in this encounter Additional Health Concerns Infection Onset Date Last Indicated Resolved Time Rule Out COVID-19 12/25/2019 12/25/2019 12/28/2019 3:49 PM MOVIE OPERATOR documented as of this encounter Care Teams Storage Consultant Relationship Specialty Start Date End Date Roberto Aldridge MD [address] [place] [address] PCP - General Family Practice 11/10/16 03/02/19 [id number], Need To Check ` PCP - General 03/03/19 03/04/19 Roberto Aldridge MD [address] [place] [address]61 PCP - General Family Practice 03/05/19 04/29/19 [id number], Need To Check ` PCP - Primary Care Physician 02/04/07 Kiersten Gomez [address] [place] [address] PCP - General 04/30/19 01/15/22 Rose Marie Mcintosh, [facility] [address] [place] [address] PCP - General Nurse Practitioner 01/16/22 Roberto Aldridge MD [address] [place] [address] Family Practice 03/03/19 documented as of this encounter
--- OUTSIDE RECORDS SUMMARY | 2024-07-24 00:07 | XMS_ITS | Clinical Summary ---
Author Organization [facility] enter Care Team Providers Care Material Reclaimer Name Role Phone Roberto Aldridge MD Unavailable [phone], Need To Check Unavailable Unavailabl e Rose Marie Mcintosh [facility] Primary Care Provider Source Comments This disclosure is being made pursuant to the Care Everywhere program,applicable federal and state laws, and may not contain all informationavailable regarding this patient.[facility] Practices Allergies Active Allergy Reactions Criticality Noted [...] Type Department Care Team Description 04/26/2024 Refill [facility] Family [facility] [address] [place] [address] Rose Marie Mcintosh CNM from Last 3 [...] Info) Description 08/04/2024 10:45 AM CDT Appointment [facility] Family Practice [address] [place] [address] Rose Marie Mcintosh, [facility] [address] [place] [address] Health Maintenance Due Date Last Done Comments HIV [place] Screening 2016 HCV Screening 12/14/2019 Chlamydia Screening 12/11/2020 12/12/2019, 8 Gonorrhea Screening 12/11/2020 12/12/2019, 8 Cervical Cancer Screening 2022 Lipid Disorder Screening 2022 [id number] Vaccine ( season) 2023 02/16/2021, 06/06/2020, 05/12/2020 [...] Procedure Name Priority Date/Time Associated Diagnosis Comments [facility] GC/CHLAM[facility]DIA BY GEN PROBE Routine 12/12/2019 1:11 PM CDT Routine screening for STI (sexually transmitted infection) from Last 3 Months or Most Recently Relevant to Health Maintenance Results * [facility] GC/CHLAMYDIA BY GEN PROBE (12/12/2019 1:11 PM CDT) Chlamydia trachomatis Amplified RNA - Source cervix 12/14/2019 5:05 PM CDT [facility] Chlamydia trachomatis Amplified RNA Negative Negative 12/14/2019 5:05 PM CDT [facility] Comment: ADDITIONAL INFORMATION This report is intended for use in clinical monitoring and management of patients. It is not intended for use in medical-legal applications. Neisseria gonorrhoeae Amplified RNA - Source cervix 12/14/2019 5:05 PM CDT [facility] Neisseria gonorrhoeae Amplified RNA Negative Negative 12/14/2019 5:05 PM CDT [facility] Comment: ADDITIONAL INFORMATION This report is intended for use in clinical monitoring and management of patients. It is not intended for use in medical-legal applications. Specimen of unknown material (specimen) 12/12/2019 1:11 PM CDT 12/12/2019 1:15 PM CDT Narrative [facility] - 12/14/2019 5:05 PM CDT Test Performed by: [address] [address] Housekeeping Director: Georges Kapoor M.D. Ph.D.; CLIA# [id number] Rose Marie Esteban [facility] MICRO[facility] Tanya l Result [facility] [address] [place] [address], from Last 3 Months or Most Recently Relevant to Health Maintenance Insurance [facility] Care Teams Material Reclaimer Relationship Specialty Start Date End Date [id number], Need To Check ` PCP - Primary Care Physician 02/04/07 Rose Marie Mcintosh CNM [address] [place] [address] PCP - General Nurse Practitioner 01/16/22 Roberto Aldridge MD [address] [place] [address] Family Practice 03/03/19
--- OUTSIDE RECORDS SUMMARY | 2024-07-24 00:07 | XMS_ITS | Encounter Summary ---
Author Organization [facility] enter Address [address] [place] [address] Phone Care Team Providers Care Residential Monitor Name Role Phone Roberto Aldridge MD Unavailable [phone], Need To Check Unavailable UnavailKiersten Sawyer Primary Care Provider [phone] Rose Marie Mcintosh [facility] Primary Care Provider Reason for Visit * Reason Comments Medication Refill Encounter Details Date Type Department Care Team (Late st Contact Info) Description 05/18/2020 Refill [facility] - Urology [address] [place] [address] Keiko Tobar, PASubhaC [address] [place] [address] Social History Tobacco Use Types Packs/Day Years [...] AM CDT Appointment [facility] - Family Practice [address] [place] [address] Rose Marie Mcintosh CNM [address] [place] [address] documented as of this encounter Visit Diagnoses Diagnosis Recurrent UTI Urinary tract infection, site not specified documented in this encounter Additional Health Concerns Assessment Noted Time PHQ-9 Depression Total Score: 11 020 2:09 PM CDT PHQ-2 Depression Total Score: 3 04/30/19 20 2:09 PM CDT documented as of this encounter Care Teams Residential Monitor Relationship Specialty Start Date End Date [id number], Need To Check ` PCP - Primary Care Physician 02/04/07 Kiersten Gomez [address] [place] [address]99 PCP - General 04/30/19 01/15/22 Rose Marie Mcintosh CNM [address] [place] [address] PCP - General Nurse Practitioner 01/16/22 Roberto Aldridge MD [address] [place] [address] Family Practice 03/03/19 documented as of this encounter
--- OUTSIDE RECORDS SUMMARY | 2024-07-24 00:08 | XMS_ITS | Clinical Summary ---
Author Organization [facility] Address [facility] [place] [address] Care Team Providers Care Filling Mixer Name Role Phone PcpBronson MD Primary Care Provider [phone] Source Comments If you need additional information that is not available on Care Everywhere, please contact our Medical Records Department during business hours (Sunday - Sunday, 8 am - 5 pm) at . During nonbusiness hours, please contact our Trauma and Emergency Center at .[facility] Allergies Active Allergy Reactions Criticality Noted [...] and Family Not on file 10/24/2021 Attends [employer] Not on file 10/24 Active Member [...] care, and heating? Not very hard 10/24/2021 [facility] - Occupational Stress Questionnaire Answer Date Recorded [...] place to sleep or slept in a nursing home (including now)? No 10/24/2021 Depression ([facility]) Answer Date Recorded PHQ2 Not on file 10/09/2014 PHQ4 Not on file 10/09/2014 PHQ9 Score 0 10/09/2014 Suicide Risk Alert Not on file 10/09/2014 Comments No Sex and Gender Information Value Date Recorded Sex Assigned at Not on file Legal Sex Female 7:55 AM EDUCATION INTERN Gender Identity Not on file Sexual Orientation Not on file Obstetrics History Last Filed Vital Signs Vital Sign Reading Time Taken Comments Blood Pressure 102/62 10/28/2021 12:50 PM CDT Pulse 80 10/28/2021 12:50 PM CDT Temperature 35.6 C (96 F) 02/04/2020 9:36 AM EDUCATION INTERN Respiratory Rate - - Oxygen Saturation - [...] RNA Negative Negative 10/10/2021 12:24 PM CDT [facility] Comment:This is an appended report. These results have been appended to a previously preliminary verified report. NEIS. GONORRHOEAE RNA Negative Negative 10/10/2021 12:24 PM CDT [facility] Comment:This is an appended report. These results have been appended to a previously preliminary verified report. TRICHOMONAS RNA Negative Negative 12:24 PM CDT [facility] Swab VAGINAL STRUCTURE / Unknown 10/07/2021 11:10 AM CDT 10/07/2021 11:13 AM CDT [facility]ative [facility] - 10/10/2021 12:24 PM CDT C.trachomatis, Neis. gonorrhoeae & Trichomonas vaginalis testing by [facility]. Kiersten L Abbas DO MICROBIOLOGY - GENERAL ORDE RABLES Final Result [facility] [address] [place] [address] * LAB TSH (10/07/2021 11:02 AM CDT) TSH 4.81 0.40 - 5.50 uU/mL 10/07/2021 8:38 PM CDT [facility] Blood BLOOD SPECIMEN / Unknown Venipuncture / Unknown 10/07/2021 11:02 AM CDT 10/07/2021 11:02 AM CDT Narrative [facility] - 10/07/2021 8:38 PM CDT Reference Range During : First Trimester: 0.10 to 2.50 uU/mL Second Trimester: 0.20 to 3.00 uU/mL Third Trimester: 0.30 to 3.00 uU/mL Kiersten Gomez DO CHEMISTRY ORDERABLES Final Result Performing Organization Address City/[facility]/ZIP Co de Phone Number [facility] [address] [place] [address] from Last 3 Months or Most Recently Relevant to Health Maintenance Insurance HMO Care Teams Filling Mixer Relationship Specialty Start Date End Date Bronson Henson MD [address] [address] PCP - General 12/23/21
--- OUTSIDE RECORDS SUMMARY | 2024-07-24 00:08 | XMS_ITS | Clinical Summary ---
Author Organization [facility] Address [address] [place] [address] Care Team Providers Care Branch Operations Coordinator Name Role Phone Pcp, No Primary Care Provider Unavailabl e Allergies Active Allergy Reactions Criticality Noted Date Comments Penicillins Rash,*Unknown - Childhood Rxn 12/22 Potassium Clavulanate *Unknown 02/18/2016 Medications [place] 0.25-35 mg-mcg tablet Take 1 Tablet by mouth once daily. Active Active Problems No known active problems Immunizations Immunization Administration Dates Next Due COVID-19 vaccine ([employer] 30mcg/0.3mL) PF, MDV 02/16/2021 DTaP 10/02/2007, [...] age to complete this topic Insurance OF NON-MI-ITS Care Teams Branch Operations Coordinator Relationship Specialty Start Date End Date Pcp, No . PCP - General 12/08/20
--- OUTSIDE RECORDS SUMMARY | 2024-07-24 00:08 | XMS_ITS | Encounter Summary ---
Author Organization [facility] enter Address [address] [place] [address] Phone Care Team Providers Care Paint Roller Covermaker Name Role Phone Roberto Aldridge MD Primary Care Provider [phone], Need To Check Primary Care Provider Unav ailable Roberto Aldridge MD Primary Care Provider + [phone] Roberto Aldridge MD Unavailable [phone], Need To Check Unavailable Kiersten Villalobos Primary Care Provider [phone] Rose Marie Mcintosh [facility] Primary Care Provider Encounter Details Date Type Department Care Team (Late st Contact Info) Description 10/10/2017 Telephone [facility] [address] [place] [address] Social History Tobacco Use Types Packs/Day Years [...] CDT Appointment [facility] [address] [place] [address] Rose Marie Mcintosh, [facility] [address] [place] [address] documented as of this encounter Visit Diagnoses Not on filedocumented in this encounter Additional Health Concerns Infection Onset Date Last Indicated Resolved Time Rule Out COVID-19 12/25/2019 12/25/2019 12/28/2019 3:49 PM [employer] documented as of this encounter Care Teams Paint Roller Covermaker Relationship Specialty Start Date End Date Roberto Aldridge MD [address] [place] [phone] PCP - General Family Practice 11/10/16 03/02/19 [id number], Need To Check ` PCP - General 03/03/19 03/04/19 Roberto Aldridge MD [address] [place] [id number] PCP - General Family Practice 03/05/19 04/29/19 [id number], Need To Check ` PCP - Primary Care Physician 02/04/07 Kiersten Gomez [address] [place] [phone] PCP - General 04/30/19 01/15/22 Rose Marie Mcintosh CN [address] [place] [phone] PCP - General Nurse Practitioner 01/16/22 Roberto Aldridge MD [address] [place] [phone] Family Practice 03/03/19 documented as of this encounter
--- OUTSIDE RECORDS SUMMARY | 2024-07-24 00:08 | XMS_ITS | Referral Summary ---
Author Organization [facility] enter Care Team Providers Care Excellence Coach Name Role Phone Roberto Aldridge MD Unavailable [phone], Need To Check Unavailable Unavailabl e Rose Marie Mcintosh CNM Primary Care Provider Source Comments This disclosure is being made pursuant to the Care Everywhere program,applicable federal and state laws, and may not contain all informationavailable regarding this patient.[facility] Encounters Date Type Department Care Team Description 04/26/2024 Refill [facility] [address] [place] [address] Rose Marie Mcintosh CNM from [...] Info) Description 08/04/2024 10:45 AM CDT Appointment [facility] [address] [place] [address] Rose Marie Mcintosh, [facility] [address] [place] [address] Procedures Procedure Name Priority Date/Time Associated Diagnosis Comments UICC GC/CHLAMYDIA BY GEN PROBE Routine 12/12/2019 1:11 PM CDT Routine screening for STI (sexually transmitted infection) from Last 3 Months or Most Recently Relevant to Health Maintenance Results * CC GC/CHLAMYDIA BY GEN PROBE (12/12/2019 1:11 PM CDT) Chlamydia trachomatis Amplified RNA - Source cervix 12/14/2019 5:05 PM CDT [facility] Chlamydia trachomatis Amplified RNA Negative Negative 12/14/2019 5:05 PM CDT [facility] Comment: ADDITIONAL INFORMATION This report is intended for use in clinical monitoring and management of patients. It is not intended for use in medical-legal applications. Neisseria gonorrhoeae Amplified RNA - Source cervix 12/14/2019 5:05 PM CDT [facility] Neisseria gonorrhoeae Amplified RNA Negative Negative 12/14/2019 5:05 PM CDT [facility] Comment: ADDITIONAL INFORMATION This report is intended for use in clinical monitoring and management of patients. It is not intended for use in medical-legal applications. Specimen of unknown material (specimen) 12/12/2019 1:11 PM CDT 12/12/2019 1:15 PM CDT Narrative [facility] - 12/14/2019 5:05 PM CDT Test Performed by: [facility] [address] , [place] [address] Car Icer: Georges Kapoor M.D. Ph.D.; CLIA# [id number] Rose Marie Esteban CNM CC MICROBIOLOGY Tanya l Result [facility] [address] [place] [address], from Last 3 Months or Most Recently Relevant to Health Maintenance Insurance [facility] Care Teams Excellence Coach Relationship Specialty Start Date End Date [id number], Need To Check ` PCP - Primary Care Physician 02/04/07 Rose Marie Mcintosh CNM [address] [place] [phone] PCP - General Nurse Practitioner 01/16/22 Roberto Aldridge MD [address] [place] [phone] Family Practice 03/03/19
== END 2024-07-24 00:12 | disposition home or self-care (01) ==
PROVIDERS: Emergency Provider Family Medicine
DX: N30.90 Cystitis, unspecified without hematuria (principal)
CPT/HCPCS: 81001; 87086; 99283